=== PATIENT | female | born 1995 | race Caucasian/White ===

== ENCOUNTER 2018-03-15 20:48 | Emergency (ER) | payer MEDICAID, SELFPAY ==
[2018-03-15 20:49] VITALS: BP 137/80; PULSE 94; RESP 18; TEMP 36.3; O2SAT 100; BMI 34.7
--- NOTE | 2018-03-15 21:02 | EKG12_ITS ---
Test Reason : CHEST OTHER Blood Pressure : / mmHG Vent. Rate : 090 BPM Atrial Rate : 090 BPM P-R Int : 142 ms QRS Dur : 078 ms QT Int : 354 ms P-R-T Axes : 037 067 048 degrees QTc Int : 433 ms Normal sinus rhythm with sinus arrhythmia Low voltage QRS Borderline ECG Confirmed by BRENDA SNEED, RICHARD ([id number]), editorial project manager GAL PERALTA ([id number] on 03/17/2018 1:12:26 PM Referred By: KATHERINE Confirmed By:RICHARD GUTIERREZ MD
--- NOTE | 2018-03-15 21:11 | ED.RN ---
NO OLD EKG'S IN MUSE
[2018-03-15 21:18] VITALS: BP 136/99; PULSE 88; RESP 17; O2SAT 99
--- NOTE | 2018-03-15 21:27 | RAD_ITS ---
STUDY: X-RAY CHEST REASON FOR EXAM: Female, 22 years old. Right lower chest or upper abdominal pain. TECHNIQUE: 2 views COMPARISON: None. FINDINGS: The lungs are clear and expanded. There is no demonstrated pleural abnormality. Normal size heart. Normal mediastinum and jada. Normal visualized pulmonary arteries. Normal visualized aortic arch and descending thoracic aorta. Normal visualized thoracic spine. Normal visualized ribs, clavicles, and shoulders. There is no demonstrated abnormality of the visualized soft tissue structures of the upper abdomen. RAD/Chest PA and Lateral IMPRESSION: Normal x-ray examination of the chest. Electronically Signed: Sherly Aguilar MD at 22:18 EDT , Service support ,
[2018-03-15] MEDS: Ketorolac 30 MG/ML Syringe IV (21:28)
[2018-03-15 21:48] LABS: Absolute Lymphocyte Count 3.58 X10^3/ul (0.83-4.51); Absolute Neutrophil Count 5.4 X10^3/uL (2.0-7.7); Basophil# 0.05 X10^3/uL; Basophil% 0.5 % (0-1); Eosinophil# 0.29 X10^3/uL; Eosinophils% 2.8 % (0-5); Hematocrit 40.7 % (37-47); Lymphocyte # 3.58 X10^3/ul (4.0); Mean Corp Hgb Conc 34.4 g/gl (32-36); Mean Corpuscular Hgb 31.7 pg (27.0-32.0); Mean Corpuscular Volume 92.1 fL (81-99); Mean Platelet Vol. 9.6 fl (6.2-12.0); Monocyte# 0.92 X10^3/uL; Neutrophil # 5.35 X10^3/uL (2.7-7.7); Neutrophil % 52.4 % (47-70); Platelet Count 314 K/mm3 (150-450); RBC Distribution Width CV 12.8 % (11.6-14.6); Red Blood Count 4.42 M/mm3 (4.2-5.4); White Blood Count 10.2 K/mm3 (4.4-11.0)
[2018-03-15 21:52] LABS: POSITIVE COUNT NO; POSITIVE DIFFERENTIAL NO; POSITIVE MORPHOLOGY NO
[2018-03-15 22:02] LABS: D-Dimer Quantitative (DVT/PE) 0.35 FEU/ug/m (0.27-0.49)
[2018-03-15 22:09] LABS: AST(SGOT) 33 U/L (15-37); Alanine Aminotransfer ALT/SGPT 35 U/L (13-56); Albumin, Serum 3.8 g/dL (3.2-5.0); Alkaline Phosphatase 84 U/L (45-117); Anion Gap 6 (5-15); BUN 13 mg/dL (7-18); BUN/Creat Ratio 14.1 RATIO (10-20); Bilirubin, Direct < 0.05 mg/dL (0.00-0.30); Calcium,Total 8.7 mg/dL (8.5-10.1); Chloride 107 mmol/L (98-107); Creatinine, Serum 0.92 mg/dL (0.55-1.02); EST Glomerular Filtration Rate 80 mL/min (>60); Est Glom Filt Rate - Afr Amer 97 mL/min (>60); Estimated Creatinine Clearance 79.34 ml/min; Globulin 4.1 g/dL (2.2-4.2); Glucose 83 mg/dL (74-106); Lipase 92 U/L (73-393); Potassium 4.2 mmol/L (3.5-5.1); Protein, Total 7.9 g/dL (6.4-8.2); Sodium Level 140 mmol/L (136-145)
[2018-03-15] MEDS: proMETHazine 25 MG/ML Syringe 12.5 MG IV (22:23)
--- NOTE | 2018-03-15 22:48 | ED.VISSUMM ---
- ER Visit Summary Date of Service: 03/15/18 Chief Complaint: Chest pain History of Present Illness: The patient is a 22 F who presents with right lower chest pain. She states she was at a bonfire last night began to have pain in her right lower lateral chest. She did have some nausea and vomiting last night. She did have some alcohol as well. She states that she felt short of breath last night although this has improved. She describes her pain is sharp. It is worse with inspiration. She denies any abdominal pain. No fevers. No diarrhea. No history of prior similar symptoms. She denies any recent travel or surgery. No history of DVT or pulmonary embolism. No known coagulopathy. She is a smoker. Physical Examination: Afebrile vitals are within normal limits Moist mucous membranes Heart regular rate and rhythm Patient has right lower lateral and posterior chest tenderness to palpation. I do not appreciate any rash. No ecchymosis. Patient does have some right upper quadrant abdominal tenderness but no guarding no rebound no Estevez's sign Test Results: EKG shows sinus rhythm at a rate of 90. CBC BMP hepatic function lipase and d-dimer are all normal. Chest x-ray is normal. Emergency Department Course and Treatment: Patient was treated with Toradol and Phenergan IV here. On reevaluation she is resting comfortably. She does not have any signs of acute life-threatening or surgical process. No evidence of pneumonia, pneumothorax, pulmonary embolism, cholecystitis. She was advised on supportive care. Given that she does have reproducible tenderness over the chest wall I suspect this is due to a musculoskeletal etiology. She was given a prescription for naproxen. She understands return for new or worsening on specific signs and symptoms to monitor for. Patient discharged home in good condition. Treatment Plan: [] Disposition: Discharge Impression: Chest wall pain This note was generated with [employer] dictation software. It may contain incorrect words, spelling, and punctuation that were not noted in review of the chart prior to signing ED Disposition - Plan for ED Patient: Chief Complaint: Chest Other Referrals: Care Physician,No Primary [Primary Care Provider] -
--- NOTE | 2018-03-15 22:51 | ED.DEP ---
ED Disposition - Plan for ED Patient: Chief Complaint: Chest Other Instructions: ED Strain Chest Wall Prescriptions: Naproxen [Naprosyn] 500 mg PO BID #20 tab Referrals: Care Physician,No Primary [Primary Care Provider] - Amador Sloan MD [STAFF PHYSICIAN] -
[2018-03-15 23:12] VITALS: PULSE 85; RESP 18; O2SAT 98
== END 2018-03-15 23:13 | disposition home or self-care (01) ==
PROVIDERS: Emergency Provider Emergency Medicine
DX: R07.89 Other chest pain (principal); R11.2 Nausea with vomiting, unspecified; R06.00 Dyspnea, unspecified; F17.200 Nicotine dependence, unspecified, uncomplicated
CPT/HCPCS: 71046; 80048; 80076; 83690; 85025; 85379; 93005; 96374; 96375; 99284; A4216

== ENCOUNTER 2018-04-27 11:28 | Emergency (ER) | payer MEDICAID, SELFPAY ==
[2018-04-27 11:29] VITALS: BP 116/63; PULSE 94; RESP 18; TEMP 36.9; O2SAT 98; BMI 36.0
--- NOTE | 2018-04-27 12:10 | ED.RN ---
walked past room and gown was bundled up on bed. looked and room and pt was not in room. pt had no communication with staff about leaving.
== END 2018-04-27 12:39 | disposition left against medical advice (07) ==
LOC: ED 12:26
PROVIDERS: Emergency Provider Emergency Medicine
DX: Z53.21 Procedure and treatment not carried out due to patient leaving prior to being seen by health care provider (principal)
CPT/HCPCS: 99281

== ENCOUNTER 2018-05-15 10:07 | Emergency (ER) | payer MEDICAID, SELFPAY ==
[2018-05-15 10:08] VITALS: BP 115/78; PULSE 119; RESP 18; TEMP 36.4; O2SAT 97; BMI 34.7
--- NOTE | 2018-05-15 10:35 | US_ITS ---
STUDY: ABDOMINAL ULTRASOUND - RIGHT UPPER QUADRANT REASON FOR VISIT: Female, 22 years old. Right upper quadrant pain. TECHNIQUE: Ultrasound evaluation of the right upper quadrant was performed with real-time and static nieves-scale imaging. TECHNICAL QUALITY: Adequate. COMPARISON: Comparison is made with prior study dated June 25, 2010. FINDINGS: Liver: The liver measures 13.9 cm. There is normal echogenicity of the liver. The bile ducts are within normal limits. There is hepatic color flow. The direction of portal flow is hepatopetal. There is no demonstrated mass lesion. Gallbladder: Normal distended gallbladder. The gallbladder wall measures 3.0 mm. There is a negative sonographic Estevez's sign. There is no pericholecystic fluid. There are no gallstones. Common Bile Duct (C.B.D.): The common bile duct measures 3.0 mm. Pancreas: Normal size of the head, body and tail of the pancreas. There is normal echogenicity of the pancreas. There is no demonstrated pancreatic mass or cyst. Right Kidney: Normal size of the right kidney. The right kidney measures 11.5 cm x 5.5 cm x 3.8 cm. Normal renal cortex. The right cortex measures 1.9 cm. There is no demonstrated renal mass or cyst. There is no right hydronephrosis. US/Gallbladder IMPRESSION: Normal right upper quadrant ultrasound examination. Electronically Signed: Jordan Butts MD at 11:41 EDT Tel [phone], Service support ,
--- NOTE | 2018-05-15 10:36 | ED.VISSUMM ---
- ER Visit Summary Date of Service: 05/15/18 Chief Complaint: Nausea, vomiting, diarrhea and right upper quadrant abdominal discomfort History of Present Illness: The patient is a 22 F past medical history of prior kidney stones. Reportedly she is about 5 weeks currently. She is seeing a media intern through the [facility]. She is Ab1 with that being a prior miscarriage. She has had no prior abdominal surgeries. States the last 3 days she has had nausea, vomiting and diarrhea. Denies any dysuria or hematuria. No fever. She has developed some right upper quadrant abdominal cramping. Physical Examination: Young female no acute distress. Vital signs are stable and afebrile. H EENT exam unremarkable. Neck nontender. Lungs clear to auscultation bilaterally. Heart regular rhythm no murmur. Rate about 100. Abdomen is soft. Nondistended. Normal bowel sounds. Mild tenderness in the right upper quadrant. No Estevez sign. No right lower quadrant tenderness. No McBurney's point tenderness. Abdomen is nondistended. Left side is nontender. Normal bowel sounds. Soft. No hernias or masses. No signs of obstruction. He is moving all 4 extremities. Nontender. No edema. Back nontender. Neurologically she is awake alert with no focal deficits. Test Results: CBC normal with a white count of 9. Normal hemoglobin. Electrolytes unremarkable. Normal creatinine and gap. Liver enzymes and lipase normal. UA shows 10-25 white cells and 1+ bacteria but no nitrates and no urinary symptoms. I will send a urine culture prior to starting any treatment wait for those results. Quantitative hCG is 34,872. Emergency Department Course and Treatment: GI workup with IV fluids and IV Zofran. Treatment Plan: Repeat exam patient is feeling better after IV fluids and IV Zofran. Clinically I think this is a viral gastroenteritis. Her abdomen currently is benign. She is comfortable being discharged to home. There is no signs of this currently being an appendicitis nor an ectopic . Disposition: Discharge Impression: Acute abdominal pain with nausea, vomiting, diarrhea secondary to viral gastroenteritis first trimester This note was generated with [employer] software. It may contain incorrect words, spelling, and punctuation that were not noted in review of the chart prior to signing ED Disposition - Plan for ED Patient: Chief Complaint: Nausea/Vomiting/Diarrhea Referrals: Care Physician,No Primary [Primary Care Provider] -
--- NOTE | 2018-05-15 10:39 | ED.DCSUM_ITS ---
- ER Visit Summary Date of Service: 05/15/18 Chief Complaint: Nausea, vomiting, diarrhea and right upper quadrant abdominal discomfort History of Present Illness: The patient is a 22 F past medical history of prior kidney stones. Reportedly she is about 5 weeks currently. She is seeing a analytics director through the [facility]. She is Ab1 with that being a prior miscarriage. She has had no prior abdominal surgeries. States the last 3 days she has had nausea, vomiting and diarrhea. Denies any dysuria or hematuria. No fever. She has developed some right upper quadrant abdominal cramping. Physical Examination: Young female no acute distress. Vital signs are stable and afebrile. H EENT exam unremarkable. Neck nontender. Lungs clear to auscultation bilaterally. Heart regular rhythm no murmur. Rate about 100. Abdomen is soft. Nondistended. Normal bowel sounds. Mild tenderness in the right upper quadrant. No Estevez sign. No right lower quadrant tenderness. No McBurney's point tenderness. Abdomen is nondistended. Left side is nontender. Normal bowel sounds. Soft. No hernias or masses. No signs of obstruction. He is moving all 4 extremities. Nontender. No edema. Back nontender. Neurologically she is awake alert with no focal deficits. Test Results: CBC normal with a white count of 9. Normal hemoglobin. Electrolytes unremarkable. Normal creatinine and gap. Liver enzymes and lipase normal. UA shows 10-25 white cells and 1+ bacteria but no nitrates and no urinary symptoms. I will send a urine culture prior to starting any treatment wait for those results. Quantitative hCG is 34,872. Emergency Department Course and Treatment: GI workup with IV fluids and IV Zofran. Treatment Plan: Repeat exam patient is feeling better after IV fluids and IV Zofran. Clinically I think this is a viral gastroenteritis. Her abdomen currently is benign. She is comfortable being discharged to home. There is no signs of this currently being an appendicitis nor an ectopic . Disposition: Discharge Impression: Acute abdominal pain with nausea, vomiting, diarrhea secondary to viral gastroenteritis first trimester This note was generated with [employer] software. It may contain incorrect words, spelling, and punctuation that were not noted in review of the chart prior to signing ED Disposition - Plan for ED Patient: Chief Complaint: Nausea/Vomiting/Diarrhea Referrals: Care Physician,No Primary [Primary Care Provider] -
[2018-05-15] MEDS: 0.9% Normal Saline 1,000 ML 1000 ML IV (10:43)
[2018-05-15] MEDS: Ondansetron 4 MG/2 ML Vial IV (10:43)
[2018-05-15 10:47] LABS: Mucous, Urine 0 SEEN /hpf (<or=2+); Red Blood Cells-Urine 0 SEEN /hpf (0-5)
[2018-05-15 10:52] LABS: Absolute Lymphocyte Count 1.55 X10^3/ul (0.83-4.51); Absolute Neutrophil Count 6.8 X10^3/uL (2.0-7.7); Basophil# 0.02 X10^3/uL; Basophil% 0.2 % (0-1); Eosinophil# 0.13 X10^3/uL; Eosinophils% 1.4 % (0-5); Hematocrit 40.6 % (37-47); Lymphocyte # 1.55 X10^3/ul (4.0); Lymphocyte % 16.7 % (19-41); Mean Corp Hgb Conc 34.5 g/gl (32-36); Mean Corpuscular Hgb 31.5 pg (27.0-32.0); Mean Corpuscular Volume 91.4 fL (81-99); Mean Platelet Vol. 8.9 fl (6.2-12.0); Monocyte# 0.79 X10^3/uL; Monocyte% 8.5 % (0-10); Neutrophil # 6.78 X10^3/uL (2.7-7.7); Neutrophil % 73.1 % (47-70); Platelet Count 238 K/mm3 (150-450); RBC Distribution Width CV 12.7 % (11.6-14.6); RBC Distribution Width SD 42.5 fl (35.1-43.9); Red Blood Count 4.44 M/mm3 (4.2-5.4); White Blood Count 9.3 K/mm3 (4.4-11.0)
[2018-05-15 10:55] LABS: POSITIVE COUNT NO; POSITIVE DIFFERENTIAL NO; POSITIVE MORPHOLOGY NO
[2018-05-15 11:05] LABS: AST(SGOT) 20 U/L (15-37); Alanine Aminotransfer ALT/SGPT 25 U/L (13-56); Albumin, Serum 3.4 g/dL (3.2-5.0); Alkaline Phosphatase 76 U/L (45-117); Anion Gap 10 (5-15); BUN 8 mg/dL (7-18); BUN/Creat Ratio 8.5 RATIO (10-20); Bilirubin, Direct 0.08 mg/dL (0.00-0.30); Calcium,Total 8.2 mg/dL (8.5-10.1); Chloride 104 mmol/L (98-107); Creatinine, Serum 0.94 mg/dL (0.55-1.02); EST Glomerular Filtration Rate 79 mL/min (>60); Est Glom Filt Rate - Afr Amer 95 mL/min (>60); Estimated Creatinine Clearance 74.25 ml/min; Globulin 4.4 g/dL (2.2-4.2); Glucose 85 mg/dL (74-106); Lipase 50 U/L (73-393); Potassium 3.4 mmol/L (3.5-5.1); Protein, Total 7.8 g/dL (6.4-8.2); Sodium Level 135 mmol/L (136-145)
[2018-05-15 11:08] LABS: Color, Urine Yellow (Yellow); Glucose, Dipstick Normal (Normal); Ketone-Dipstick 5 mg/dl (Negative); Leukocyte Esterase-Dipstick 100 /ul (Negative); Nitrite-Dipstick Negative (Negative); Occult Blood-Urine Negative /ul (Negative); Protein-Dipstick 15 mg/dl (Negative); Urine Clarity Sl. Cloudy (Clear); Urine Urobilinogen Normal (Normal)
[2018-05-15 11:11] LABS: Urine Bilirubin Dipstick 1 mg/dL (Negative)
[2018-05-15 11:20] LABS: Bacteria 1+ /hpf (None Seen); Squamous Epithelial Cells - UA 0-5 SEEN /hpf (5-10); White Blood Cells 10-25 SEEN /hpf (0-5)
[2018-05-15 11:24] LABS: hCG Titer Quant., Serum 34872 mIU/mL (<9 non-preg)
--- NOTE | 2018-05-15 13:07 | ED.DEP ---
ED Disposition - Plan for ED Patient: Disposition: Home or Assisted Living Chief Complaint: Nausea/Vomiting/Diarrhea Instructions: ED Gastroenteritis Viral Prescriptions: Ondansetron [Zofran Odt] 4 mg PO Q4H PRN PRN #10 tab.rapdis PRN Reason: Nausea Referrals: Care Physician,No Primary [Primary Care Provider] - 1-2 Days if not improving Additional Instructions: Plenty of fluids and rest. Zofran as needed for nausea. Return if feeling worse or follow-up the primary care provider or your ASSISTANT PROFESSOR OF EDUCATION if not improving.
--- NOTE | 2018-05-15 13:10 | DCINST.ED_ITS ---
ED Disposition - Plan for ED Patient: Disposition: Home or Assisted Living Chief Complaint: Nausea/Vomiting/Diarrhea Instructions: ED Gastroenteritis Viral Prescriptions: Ondansetron [Zofran Odt] 4 mg PO Q4H PRN PRN #10 tab.rapdis PRN Reason: Nausea Referrals: Care Physician,No Primary [Primary Care Provider] - 1-2 Days if not improving Additional Instructions: Plenty of fluids and rest. Zofran as needed for nausea. Return if feeling worse or follow-up the primary care provider or your VISUAL EFFECTS ARTIST if not improving.
== END 2018-05-15 13:19 | disposition home or self-care (01) ==
PROVIDERS: Emergency Provider Emergency Medicine
DX: O98.511 Other viral diseases complicating pregnancy, first trimester (principal); A08.4 Viral intestinal infection, unspecified; R10.11 Right upper quadrant pain; R11.2 Nausea with vomiting, unspecified; R19.7 Diarrhea, unspecified; O99.331 Smoking (tobacco) complicating pregnancy, first trimester; F17.200 Nicotine dependence, unspecified, uncomplicated; Z3A.01 Less than 8 weeks gestation of pregnancy; Z87.442 Personal history of urinary calculi
CPT/HCPCS: 76705; 80048; 80076; 81001; 83690; 84702; 85025; 96361; 96374; 99283; J7030; J2405

== ENCOUNTER 2018-05-26 10:27 | Day surgery (SDC) | payer MEDICAID, SELFPAY ==
[2018-05-26] VITALS (8 sets, daily range): BP systolic 105–118; BP diastolic 62–74; PULSE 58–75; RESP 14–18; TEMP 36.4–36.9; O2SAT 91–98; BMI 35.4
--- NOTE | 2018-05-26 | POC_PTH ---
PATIENT: VIKKI WEBBER LOC: [facility] U#:[id number] AGE/SX: 22/F ROOM: RE05/26/[address]: Dr. Martita Rodriguez, MDDOB: 1995 BED: DIS: 05/26/2018 SPEC #: [id number] RECD: 05/26/18 13:56 STATUS: MASSIMO REDuncan #: [id number] DERRICK: 05/26/18 00:[address]: Martita Rodriguez DEPT: SURGICAL PATHOLOGY RECD BY: Kofi Handy ENTERED: 05/26/18 13:56 SP TYPE: PROD CONC OTHR DR: No Primary Care Phys Tissues: Product of conception, NOS Procedures: Surgery Specimen Level IV HEADER OPERATION: Dilation and curettage, suction PRE-OP DIAGNOSIS: Retained products of conception after miscarriage TISSUE SUBMITTED: Products of conception MICROSCOPIC DIAGNOSIS Products of conception: Decidua, blood clots, immature chorionic villi and secretory endometrium (products of conception). BRAYAN:desmond 05/27/18 COMMENT Please make reference to previous specimen ([id number]) products of conception with diagnosis of decidua and immature chorionic villi (products of conception). MICROSCOPIC DESCRIPTION Slides are reviewed. GROSS DESCRIPTION Received in fixative is one container labeled with the patient's name and designated products of conception. The specimen consists of multiple irregular fragments of pink-red soft tissue that in aggregate measure 5 x 5 x 2 cm. tissue is not identified. Launch Manager tissue is submitted in three cassettes. / BRAYAN:desmond 05/26/18 TC:5 CPT: 91187
[2018-05-26] MEDS: Doxycycline 100 MG CAPSULE 200 MG PO (10:49)
--- NOTE | 2018-05-26 12:39 | DCINST_ITS ---
Discharge Diet: No Restrictions Discharge Activity: Return to Normal Activity, May Shower, May Take a Tub Bath - in 2 weeks. May resume sexual activity in: 1 week Call your doctor if you observe: Fever of 101 or Higher, Using more than one pad per hour, Uncontrolled pain Allergies/Adverse Reactions: Allergies No Known Allergies Allergy (Verified 05/25/18 15:48) Medications to take at Discharge Hydrocodone/Acetaminophen [Hydrocodon-Acetaminophen 5-325] 1 each PO DAILY PRN 05/25/18 Sertraline HCl [Zoloft] 50 mg PO DAILY 05/25/18 Primary Care Physician: Care Physician,No Primary [Primary Care Provider] - Test Results: Test results from this visit will be discussed in further detail at your follow- up appointment, if applicable. Please Follow Up With: Martita Rodriguez MD When: 2 weeks post op
--- NOTE | 2018-05-26 12:40 | PCM.OPRPT ---
Problem List (1) Retained products of conception after miscarriage Status: Acute Report of Operation Date of Procedure: 05/26/18 Pre-Operative Diagnosis: retained products of conception after missed ab Post-Operative Diagnosis: same Surgery/Procedure Performed:: Suction Dilation and Curettage Description of Surgical Findings:: retained POC seen at cervical OS- moderate amount of tissue suctioned with 7mm suction catheter Type of Anesthesia:: MAC Specimen's removed: products of conception Drains: none Estimated Blood Loss (mL): 10 Fluids Replaced: 700 Description of Procedure: After informed consent was obtained patient was taken to OR and placed in supine position. Anesthesia was given. patient was placed in yellow fin stirrups and prepped and draped in normal sterile fashion. bladder was drained with straight catheter with approximately 200 of clear yellow urine expelled. Weighted speculum placed in posterior fornix of vaginal, single tooth tenaculum was used to gently grasped anterior lip of cervix. retained POC seen at cervical OS. Cervix was then gently dilated in an incremental fashion. Was adequate dilation was achieved the 7mm syrian suction catheter was placed. suction curettage performed until no tissue was expelled and cavity was deemed empty. The tissue was then sent to pathology for examination. No complications. At this time procedure was deemed complete and successful. Tenaculum removed, speculum removed. Good hemostasis appreciated. Vaginal sweep was negative. Instrument and lap count correct x 2. I anticipate normal postoperative course. - Complications none - Admit VTE Documentation VTE Present on Admission: Yes VTE Mechan Device Prophylaxis: SCD's VTE Pharm Prophylaxis ordered?: No
== END 2018-05-26 14:13 | disposition home or self-care (01) ==
LOC: SDC 10:29 → AC 10:31
PROVIDERS: Referring Provider Obstetrics & Gynecology; Visit Provider Obstetrics & Gynecology
PROC: (CPT 59812; principal; 2018-05-26 07:15)
DX: O03.4 Incomplete spontaneous abortion without complication (principal); F32.9 Major depressive disorder, single episode, unspecified; Z79.899 Other long term (current) drug therapy; K21.9 Gastro-esophageal reflux disease without esophagitis; F17.210 Nicotine dependence, cigarettes, uncomplicated
CPT/HCPCS: 01965; 59812; 88305; J7120; J2405

== ENCOUNTER 2019-04-06 02:03 | Observation (INO) | payer MEDICAID, SELFPAY ==
[2019-04-06] VITALS (17 sets, daily range): BP systolic 85–133; BP diastolic 7–93; PULSE 55–108; RESP 12–20; TEMP 35.7–36.7; O2SAT 79–100; BMI 36.4; BMI 35.5; BMI 35.6
--- NOTE | 2019-04-06 02:14 | EKG12_ITS ---
Test Reason : Blood Pressure : / mmHG Vent. Rate : 084 BPM Atrial Rate : 084 BPM P-R Int : 144 ms QRS Dur : 076 ms QT Int : 340 ms P-R-T Axes : 063 070 045 degrees QTc Int : 401 ms Normal sinus rhythm with sinus arrhythmia Low voltage QRS Borderline ECG Confirmed by BRENDA SNEED, RICHARD ([id number]), proposal editor DIPTI PETIT ([id number]) on 04/07/2019 8:58:16 AM Referred By: KAY Confirmed By:RICHARD GUTIERREZ MD
[2019-04-06 02:27] LABS: Absolute Lymphocyte Count 3.85 X10^3/uL (0.83-4.51); Absolute Neutrophil Count 7.7 X10^3/uL (2.0-7.7); Basophil# 0.06 X10^3/uL; Basophil% 0.5 % (0-1); Eosinophil# 0.15 X10^3/uL; Eosinophils% 1.2 % (0-5); Hematocrit 44.1 % (37-47); Hemoglobin 15.2 g/dL (12.0-15.0); Lymphocyte # 3.85 X10^3/ul (4.0); Lymphocyte % 30.8 % (19-41); Mean Corp Hgb Conc 34.5 g/dL (32-36); Mean Corpuscular Hgb 31.6 pg (27.0-32.0); Mean Corpuscular Volume 91.7 fL (81-99); Monocyte# 0.63 X10^3/uL; NRBC Flagged by Analyzer 0 % (0-5); Neutrophil # 7.73 X10^3/uL (2.7-7.7); Platelet Count 322 K/mm3 (150-450); RBC Distribution Width CV 12.5 % (11.6-14.6); RBC Distribution Width SD 41.8 fl (35.1-43.9); Red Blood Count 4.81 M/mm3 (4.2-5.4); White Blood Count 12.5 K/mm3 (4.4-11.0)
[2019-04-06 02:36] LABS: Vista UDS pH Range 6
[2019-04-06 02:38] LABS: Internal QC Validated? YES +Cl - CLEAR BKGD; Pregnancy, Serum, hCG Quali. NEGATIVE Negative
[2019-04-06 02:41] LABS: Anion Gap 5 (5-15); BUN 14 mg/dL (7-18); BUN/Creat Ratio 14.2 RATIO (10-20); Calcium,Total 8.6 mg/dL (8.5-10.1); Chloride 107 mmol/L (98-107); Creatinine, Serum 0.99 mg/dL (0.55-1.02); EST Glomerular Filtration Rate 74 mL/min (>60); Est Glom Filt Rate - Afr Amer 89 mL/min (>60); Glucose 104 mg/dL (74-106); Potassium 3.5 mmol/L (3.5-5.1); Sodium Level 138 mmol/L (136-145)
[2019-04-06] MEDS: Activated Charcoal 50 GM/240 ML BOT PO (02:51)
[2019-04-06 02:54] LABS: Amphetamine Urine VISTA NEGATIVE (<1000 ng/mL); Barbiturate Urine VISTA NEGATIVE (< 200 ng/mL); Benzodiazepine Urine VISTA NEGATIVE (< 200 ng/mL); Cocaine Urine VISTA NEGATIVE (< 300 ng/mL); Ecstacy Urine VISTA NEGATIVE (< 500 ng/mL); Methadone Urine VISTA NEGATIVE (< 300 ng/mL); PCP Urine VISTA NEGATIVE (< 25 ng/mL); THC Urine VISTA POSITIVE (< 50 ng/mL)
[2019-04-06 02:54] LABS: Alcohol, Blood (Medical)-Serum < 3.0 mg/dL; Salicylate 12.2 mg/dL (2.8-20.0)
[2019-04-06 03:07] LABS: Acetaminophen (Tylenol) Level < 2.0 ug/mL (10.0-30.0)
--- NOTE | 2019-04-06 03:25 | ED.DCSUM_ITS ---
- ER Visit Summary Date of Service: 04/06/19 Chief Complaint: [Depression and suicidal ideation and intentional drug overdose] History of Present Illness: The patient is a 23 F [presents to the emergency department after ingesting a handful of full-strength aspirin. Patient states the ingestion occurred about an hour ago. Patient complains of some burning in her stomach. She denies vomiting. Patient states that she was feeling depressed because she is been going through a lot of stress lately. Patient supposed to be on antidepressant and she is not been taking it. Patient also has history of bipolar disorder. She denies any auditory or visual hallucinations. She denies any other ingestions today. Patient is a smoker. Patient admits occasional marijuana use. She denies alcohol tonight. Physical Examination: [HEENT-PERRLA, EOMI. Cranial nerves II through XII gross ly intact. TMs clear. Mucous membranes moist. No adenopathy. Cardiovascular-regular rate and rhythm without murmur or ectopy Lungs-clear to auscultation, chest wall stable without crepitus or subcu emphysema Abdomen-normoactive bowel sounds, soft, nontender, no rebound or rigidity, no peritoneal signs. Extremities-intact ?4, normal range of motion, normal pulses, atraumatic] Test Results: [EKG obtained arrival shows sinus rhythm with a ventricular rate of 84 bpm. CBC with differential showed a white count 12.5, hemoglobin 15, hematocrit 44, placed 322. Chemistries unremarkable. hCG was negative. Salicylates were 12.2. Tylenol was less than 2. Tox screen was positive for marijuana. Alcohol was negative.] Emergency Department Course and Treatment: [Case was discussed with poison control and they recommended charcoal. Patient was given 50 g p.o. Patient was given Zofran 4 mg IV. Case was discussed with hospitalist will evaluate patient for admission. If patient's level peaks above 30 she may require alkalinization of the blood in urine with sodium bicarb.] Treatment Plan: [Admit to ICU] Disposition: [Admit] Impression: [Suicidal ideation Depression Salicylate overdose] This note was generated with [employer] software. It may contain incorrect words, spelling, and punctuation that were not noted in review of the chart prior to signing ED Disposition - Plan for ED Patient: Referrals: Care Physician,No Primary [Primary Care Provider] -
[2019-04-06] MEDS: Ondansetron 4 MG/2 ML Vial IV (03:39)
--- NOTE | 2019-04-06 03:50 | HP.PCM_ITS ---
Problem List (1) Suicide attempt Status: Acute History of Present Illness Date of Admission: 04/06/19 Chief Complaint: intentional aspirin overdose The patient is a 23 year old female with a significant past medical history of bipolar disorder presents to the emergency room 1 hour after taking a handful of full-strength aspirin from a bottle that she states was full, however the quantity remains unknown and is described as a handful. The patient states her stress level has been very high lately and she is in a very depressed state, she was able to reach out to her sibling who recognized that she was upset and found out that she had taken these pills. She then assisted her in getting medical care. The patient is seen at [facility] for diagnosis of bipolar disorder for which she is prescribed Lamictal most recently, however she states she has not been taking that. Patient states previously she has been on several SSRIs that have been unsuccessful in helping her. The patient is currently not in school nor she employed. Initial aspirin level is 12 and the patient test positive for cannabinoids on her drug screen. Currently the patient denies chest pain shortness of breath fevers or chills nausea vomiting or diarrhea. The patient remains tearful. She will be admitted to the intensive care unit following protocol to find peak level of aspirin followed by decline in serum levels at which point she would be medically cleared for crisis team intervention to assist her more with her counseling and psychological support. Past Medical History Allergies No Known Allergies Allergy (Verified 05/25/18 15:48) Home Medications: Ambulatory Orders Medication Instructions Recorded Lamotrigine [Lamictal] 25 mg PO DAILY 04/06/19 Smoking Status: Current every day smoker - *Family History Maternal History Items: No pertinent history Review of Systems Constitutional: Denies: Chills, Fever, Weight Change HEENT: Denies: Head Aches, Sinus Congestion, Sinus Drainage Cardiovascular: Denies: Chest Pain, Palpitations Respiratory: Denies: Cough, Shortness of breath at rest, Sputum production Gastrointestinal: Denies: Abdominal Pain, Nausea, Vomiting Genitourinary: Denies: Dysuria Musculoskeletal: Denies: Joint Pain, Joint Tenderness Skin: Denies: Rash, Wounds Neurological: Denies: Numbness, Tingling, Focal weakness Psychiatric: Reports: Depression, Suicidal Ideations. Denies: Anxiety, Homicidal Ideations Hematologic/ Lymphatic: Denies: Easy Bruising, Easy Bleeding VTE Information - Inpt Only VTE Present on Admission: No VTE Mechan Device Prophylaxis: SCD's VTE Pharm Prophylaxis ordered?: No Patient Problems: Active and Suspected Problems Suicide attempt (Acute) - Physical Exam General: Alert, Oriented x3, Cooperative HEENT: Atraumatic, Normocephalic Neck: Supple Lungs: Clear to auscultation, Normal air movement Cardiovascular: Regular rate, Normal S1, Normal S2, No murmurs Abdomen: Bowel Sounds Present, Soft, Non Tender, Obese Extremities: No edema Skin: No rashes Musculoskeletal: No Tenderness to Palpation of Joints or Extremities Neurological: Neuro grossly intact Psych/Mental Status: Depressed, Suicidal Vital Signs Temp Pulse Resp BP Pulse Ox 98.0 F 85 17 122/78 H 98 04/06/19 03:40 04/06/19 03:40 04/06/19 03:40 04/06/19 03:40 04/06/19 03:40 Oxygen Delivery Method Room Air Weight: 199 lb 4.766 oz Body Mass Index (BMI) 36.4 Laboratory Tests Past 24 Hrs 04/06/19 04/06/19 04/06/19 02:22 02:22 02:22 WBC 12.5 H RBC 4.81 Hgb 15.2 H Hct 44.1 MCV 91.7 MCH 31.6 MCHC 34.5 RDW Std Deviation 41.8 RDW Coeff of Jules 12.5 Plt Count 322 MPV 9.0 Immature Gran % (Auto) 0.500 Neut % (Auto) 62.0 Lymph % (Auto) 30.8 [place] % (Auto) 5.0 Eos % (Auto) 1.2 Baso % (Auto) 0.5 Absolute Neuts (auto) 7.7 Absolute Lymphs (auto) 3.85 Nucleated RBC % 0 Sodium 138 Potassium 3.5 Chloride 107 Carbon Dioxide 26.0 Anion Gap 5 BUN 14 Creatinine 0.99 Estim Creat Clear Calc 69.90 Est GFR (MDRD) Af Amer 89 Est GFR (MDRD) Non-Af 74 BUN/Creatinine Ratio 14.2 Glucose 104 Calcium 8.6 Serum , Qual Salicylates 12.2 Urine Opiates Screen Urine Methadone Screen Acetaminophen < 2.0 L Ur Barbiturates Screen Ur Phencyclidine Scrn Ur Amphetamines Screen U Methamphetamin-MDMA U Benzodiazepines Scrn Urine Cocaine Screen U Cannabinoids Screen Ur Drug Screen Comment Ethyl Alcohol < 3.0 04/06/19 04/06/19 02:22 02:30 WBC RBC Hgb Hct MCV MCH MCHC RDW Std Deviation RDW Coeff of Jules Plt Count MPV Immature Gran % (Auto) Neut % (Auto) Lymph % (Auto) [place] % (Auto) Eos % (Auto) Baso % (Auto) Absolute Neuts (auto) Absolute Lymphs (auto) Nucleated RBC % Sodium Potassium Chloride Carbon Dioxide Anion Gap BUN Creatinine Estim Creat Clear Calc Est GFR (MDRD) Af Amer Est GFR (MDRD) Non-Af BUN/Creatinine Ratio Glucose Calcium Serum , Qual NEGATIVE Salicylates Urine Opiates Screen NEGATIVE Urine Methadone Screen NEGATIVE Acetaminophen Ur Barbiturates Screen NEGATIVE Ur Phencyclidine Scrn NEGATIVE Ur Amphetamines Screen NEGATIVE U Methamphetamin-MDMA NEGATIVE U Benzodiazepines Scrn NEGATIVE Urine Cocaine Screen NEGATIVE U Cannabinoids Screen POSITIVE H Ur Drug Screen Comment Ethyl Alcohol Assessment/Plan All Active Problems Retained products of conception after miscarriage (Acute) Suicide attempt (Acute) Plan 1. Suicide attempt by aspirin overdose?at the patient to the intensive care unit, will check aspirin serum levels every 2 hours until noted decline. Repeat CBC BMP in the morning, consult crisis team for intervention to help with counseling 2. Bipolar disorder?patient is noncompliant with her Lamictal therapy 3. DVT prophylaxis?will not use low molecular weight heparin due to patient overdosing on aspirin currently and will assume she is low risk as a result. 4. Smoking?defer discussion due to psychologic state at this time regarding cessation Code Visit Inpatient E&M: 26386 Init Hosp L3
[2019-04-06] MEDS: 0.9% NaCl Peripheral Flush Adult/Peds IV (04:40)
[2019-04-06 04:54] LABS: Absolute Lymphocyte Count 3.18 X10^3/uL (0.83-4.51); Absolute Neutrophil Count 7.9 X10^3/uL (2.0-7.7); Basophil# 0.06 X10^3/uL; Basophil% 0.5 % (0-1); Eosinophil# 0.14 X10^3/uL; Eosinophils% 1.2 % (0-5); Hematocrit 40.2 % (37-47); Hemoglobin 13.8 g/dL (12.0-15.0); Lymphocyte # 3.18 X10^3/ul (4.0); Lymphocyte % 26.3 % (19-41); Mean Corp Hgb Conc 34.3 g/dL (32-36); Mean Corpuscular Hgb 31.2 pg (27.0-32.0); Mean Platelet Vol. 9.4 fl (6.2-12.0); Monocyte# 0.82 X10^3/uL; Monocyte% 6.8 % (0-10); NRBC Flagged by Analyzer 0 % (0-5); Neutrophil # 7.86 X10^3/uL (2.7-7.7); Neutrophil % 64.9 % (47-70); Platelet Count 293 K/mm3 (150-450); RBC Distribution Width CV 12.6 % (11.6-14.6); Red Blood Count 4.42 M/mm3 (4.2-5.4); White Blood Count 12.1 K/mm3 (4.4-11.0)
[2019-04-06 05:02] LABS: Anion Gap 10 (5-15); BUN 12 mg/dL (7-18); BUN/Creat Ratio 12.5 RATIO (10-20); Calcium,Total 8.5 mg/dL (8.5-10.1); Chloride 109 mmol/L (98-107); Creatinine, Serum 0.96 mg/dL (0.55-1.02); EST Glomerular Filtration Rate 76 mL/min (>60); Est Glom Filt Rate - Afr Amer 92 mL/min (>60); Estimated Creatinine Clearance 72.08 ml/min; Glucose 108 mg/dL (74-106); Potassium 3.4 mmol/L (3.5-5.1); Sodium Level 142 mmol/L (136-145)
[2019-04-06 05:23] LABS: Salicylate 16.2 mg/dL (2.8-20.0)
[2019-04-06 07:29] LABS: Salicylate 16.2 mg/dL (2.8-20.0)
--- NOTE | 2019-04-06 08:18 | CON.PCM_ITS ---
Reason for Consult Date of Consultation: 04/06/19 Reason for Consultation: Intentional ASA Overdose History of Present Illness: The patient is a 23-year-old female, with a history as outlined below, who presented to the emergency department on April 06 after intentionally ingesting a handful of aspirin of unknown strength. The patient does have an apparent history of significant depression and bipolar. She is a current smoker of 1 pack of cigarettes per day. On presentation to the emergency department, the patient was noted to be afebrile and hemodynamically stable. She was maintaining appropriate oxygen saturations on room air. Laboratory evaluation revealed a mildly elevated white blood cell count to 12,000. Chemistry profile was unrevealing. Toxicology screen was positive for cannabinoids. The patient's initial salicylate level was noted to be 12.2 mg/dL. The patient was pink slipped. She was subsequently transferred to the medical intensive care unit for further management. Past Medical History Allergies No Known Allergies Allergy (Verified 05/25/18 15:48) Home Medications: Ambulatory Orders Medication Instructions Recorded Lamotrigine [Lamictal] 25 mg PO DAILY 04/06/19 Smoking Status: Current every day smoker Tobacco Use: Secondhand, Cigarettes - *Family History Maternal History Items: No pertinent history Review of Systems Constitutional: Denies: Chills, Fever Eyes: Denies: Blurred vision, Double vision HEENT: Denies: Difficulty Hearing, Difficulty Swallowing, Hard of Hearing Cardiovascular: Denies: Chest Pain, Edema Respiratory: Denies: Cough, Shortness of Breath Gastrointestinal: Denies: Abdominal Pain, Nausea, Vomiting Genitourinary: Denies: Dysuria Musculoskeletal: Denies: Joint Pain, Joint Tenderness Skin: Denies: Rash, Wounds Neurological: Denies: Numbness, Tingling, Focal weakness Psychiatric: Reports: Depression, Suicidal Ideations Hematologic/ Lymphatic: Denies: Easy Bruising, Easy Bleeding Patient Problems: Active and Suspected Problems Suicide attempt (Acute) Objective: The patient's most recent lab work, culture data and imaging studies have all been personally reviewed. - Physical Exam General: Alert, Cooperative, No apparent distress HEENT: Atraumatic, PERRLA, Normocephalic Oral: No Gingival or Mucosal Lesions/ Ulcerations Neck: Supple, No Nodes, Trachea Midline Lungs: Normal air movement, No rhonchi, No wheeze, No rales Cardiovascular: Regular rate, Regular Rhythm, Normal S1, Normal S2, No murmurs Abdomen: Bowel Sounds Present, Soft, Non Tender, Obese Extremities: No clubbing, No cyanosis, No edema Skin: No breakdown Musculoskeletal: No Tenderness to Palpation of Joints or Extremities, No Muscle Wasting Lymphatic: No Cervical, Supraclavicular, or Inguinal Adenopathy Neurological: Cranial nerves II-XII grossly intact, Neuro grossly intact Psych/Mental Status: Flat Affect, Depressed Vital Signs Temp Pulse Resp BP Pulse Ox 96.2 F L 64 14 102/55 L 96 04/06/19 05:00 04/06/19 06:00 04/06/19 06:00 04/06/19 06:00 04/06/19 06:00 Oxygen Delivery Method Room Air Weight: 194 lb 7.163 oz Body Mass Index (BMI) 35.5 Laboratory Tests Past 24 Hrs 04/06/19 04/06/19 04/06/19 02:22 02:22 02:22 WBC 12.5 H RBC 4.81 Hgb 15.2 H Hct 44.1 MCV 91.7 MCH 31.6 MCHC 34.5 RDW Std Deviation 41.8 RDW Coeff of Jules 12.5 Plt Count 322 MPV 9.0 Immature Gran % (Auto) 0.500 Neut % (Auto) 62.0 Lymph % (Auto) 30.8 [place] % (Auto) 5.0 Eos % (Auto) 1.2 Baso % (Auto) 0.5 Absolute Neuts (auto) 7.7 Absolute Lymphs (auto) 3.85 Nucleated RBC % 0 Sodium 138 Potassium 3.5 Chloride 107 Carbon Dioxide 26.0 Anion Gap 5 BUN 14 Creatinine 0.99 Estim Creat Clear Calc 69.90 Est GFR (MDRD) Af Amer 89 Est GFR (MDRD) Non-Af 74 BUN/Creatinine Ratio 14.2 Glucose 104 Calcium 8.6 Serum , Qual Salicylates 12.2 Urine Opiates Screen Urine Methadone Screen Acetaminophen < 2.0 L Ur Barbiturates Screen Ur Phencyclidine Scrn Ur Amphetamines Screen U Methamphetamin-MDMA U Benzodiazepines Scrn Urine Cocaine Screen U Cannabinoids Screen Ur Drug Screen Comment Ethyl Alcohol < 3.0 Miscellaneous Test 04/06/19 04/06/19 04/06/19 02:22 02:30 04:35 WBC RBC Hgb Hct MCV MCH MCHC RDW Std Deviation RDW Coeff of Jules Plt Count MPV Immature Gran % (Auto) Neut % (Auto) Lymph % (Auto) [place] % (Auto) Eos % (Auto) Baso % (Auto) Absolute Neuts (auto) Absolute Lymphs (auto) Nucleated RBC % Sodium Potassium Chloride Carbon Dioxide Anion Gap BUN Creatinine Estim Creat Clear Calc Est GFR (MDRD) Af Amer Est GFR (MDRD) Non-Af BUN/Creatinine Ratio Glucose Calcium Serum , Qual NEGATIVE Salicylates Urine Opiates Screen NEGATIVE Urine Methadone Screen NEGATIVE Acetaminophen Ur Barbiturates Screen NEGATIVE Ur Phencyclidine Scrn NEGATIVE Ur Amphetamines Screen NEGATIVE U Methamphetamin-MDMA NEGATIVE U Benzodiazepines Scrn NEGATIVE Urine Cocaine Screen NEGATIVE U Cannabinoids Screen POSITIVE H Ur Drug Screen Comment Ethyl Alcohol Miscellaneous Test Cancelled 04/06/19 04/06/19 04/06/19 04:35 04:35 04:35 WBC 12.1 H RBC 4.42 Hgb 13.8 Hct 40.2 MCV 91.0 MCH 31.2 MCHC 34.3 RDW Std Deviation 42.0 RDW Coeff of Jules 12.6 Plt Count 293 MPV 9.4 Immature Gran % (Auto) 0.300 Neut % (Auto) 64.9 Lymph % (Auto) 26.3 [place] % (Auto) 6.8 Eos % (Auto) 1.2 Baso % (Auto) 0.5 Absolute Neuts (auto) 7.9 H Absolute Lymphs (auto) 3.18 Nucleated RBC % 0 Sodium 142 Potassium 3.4 L Chloride 109 H Carbon Dioxide 23.0 Anion Gap 10 BUN 12 Creatinine 0.96 Estim Creat Clear Calc 72.08 Est GFR (MDRD) Af Amer 92 Est GFR (MDRD) Non-Af 76 BUN/Creatinine Ratio 12.5 Glucose 108 H Calcium 8.5 Serum , Qual Salicylates 16.2 Urine Opiates Screen Urine Methadone Screen Acetaminophen Ur Barbiturates Screen Ur Phencyclidine Scrn Ur Amphetamines Screen U Methamphetamin-MDMA U Benzodiazepines Scrn Urine Cocaine Screen U Cannabinoids Screen Ur Drug Screen Comment Ethyl Alcohol Miscellaneous Test 04/06/19 06:55 WBC RBC Hgb Hct MCV MCH MCHC RDW Std Deviation RDW Coeff of Jules Plt Count MPV Immature Gran % (Auto) Neut % (Auto) Lymph % (Auto) [place] % (Auto) Eos % (Auto) Baso % (Auto) Absolute Neuts (auto) Absolute Lymphs (auto) Nucleated RBC % Sodium Potassium Chloride Carbon Dioxide Anion Gap BUN Creatinine Estim Creat Clear Calc Est GFR (MDRD) Af Amer Est GFR (MDRD) Non-Af BUN/Creatinine Ratio Glucose Calcium Serum , Qual Salicylates 16.2 Urine Opiates Screen Urine Methadone Screen Acetaminophen Ur Barbiturates Screen Ur Phencyclidine Scrn Ur Amphetamines Screen U Methamphetamin-MDMA U Benzodiazepines Scrn Urine Cocaine Screen U Cannabinoids Screen Ur Drug Screen Comment Ethyl Alcohol Miscellaneous Test Assessment/Plan Active and Suspected Problems Suicide attempt (Acute) RECOMMENDATIONS: 1. Continue to monitor salicylate level every 2 hours until it begins to downtrend. 2. Alkalinization therapy is not indicated at this time. 3. The patient will require crisis evaluation once medically stabilized. 4. Start nicotine replacement therapy. IMPRESSIONS: 1. Intentional aspirin overdose/suicide attempt The patient remains clinically stable. Her salicylate levels have never reached a toxic level. The patient is asymptomatic at this time. There is no indication for alkalinization therapy. Continue to monitor serum salicylate levels every 2 hours until they begin to downtrend. At that time, the patient can be evaluated by the crisis team. 2. History of depression/bipolar disorder/tobacco dependency Complicates care, management, recovery and prognosis. Crisis evaluation is pending. Nicotine replacement therapy can be offered to the patient while admitted to the hospital. This note was generated with [employer] dictation software. It may contain incorrect words, spelling, and punctuation that were not noted in checking the note before signing. Code Visit Inpatient E&M: 69968 Init Hosp L3
--- NOTE | 2019-04-06 08:55 | PN_ITS ---
Patient Problems: Active and Suspected Problems Suicide attempt (Acute) Subjective: Feels tired. Denies any headache, nausea, vomiting, tinnitus. States that she took all the aspirin to end it. Vitals/I&O's: Vital Signs Temp Pulse Resp BP Pulse Ox 35.7 C L 58 L 14 102/55 L 96 04/06/19 05:00 04/06/19 08:30 04/06/19 06:00 04/06/19 06:00 04/06/19 06:00 Oxygen Delivery Method Room Air Weight: 88.2 kg Body Mass Index (BMI) 35.5 General: Alert, No apparent distress HEENT: Atraumatic, Normocephalic Oral: Moist Mucosa, No Gingival or Mucosal Lesions/ Ulcerations Neck: No Nodes, Thyroid Normal Size and Texture Lungs: Clear to auscultation, Normal air movement, No rhonchi, No wheeze, No rales, Diminished Cardiovascular: Regular rate, Regular Rhythm, Normal S1, Normal S2, No murmurs Abdomen: Bowel Sounds Present, Soft, Non Tender, Non-Distended, No Hepato- splenomegaly Extremities: No edema, No Calf Tenderness Skin: No rashes, No breakdown Musculoskeletal: No Tenderness to Palpation of Joints or Extremities, No Muscle Wasting, Arthritic Changes, Cachexia Lymphatic: No Cervical, Supraclavicular, or Inguinal Adenopathy, Cervical Adenopathy Psych/Mental Status: Appropriate, Flat Affect Laboratory Results 04/06/19 02:22: WBC 12.5 H, RBC 4.81, Hgb 15.2 H, Hct 44.1, MCV 91.7, MCH 31.6, MCHC 34.5, RDW Std Deviation 41.8, RDW Coeff of Jules 12.5, Plt Count 322, MPV 9.0, Immature Gran % (Auto) 0.500, Neut % (Auto) 62.0, Lymph % (Auto) 30.8, [place] % (Auto) 5.0, Eos % (Auto) 1.2, Baso % (Auto) 0.5, Absolute Neuts (auto) 7.7, Absolute Lymphs (auto) 3.85, Nucleated RBC % 0 04/06/19 02:22: Sodium 138, Potassium 3.5, Chloride 107, Carbon Dioxide 26.0, Anion Gap 5, BUN 14, Creatinine 0.99, Estim Creat Clear Calc 69.90, Est GFR (MDRD) Af Amer 89, Est GFR (MDRD) Non-Af 74, BUN/Creatinine Ratio 14.2, Glucose 104, Calcium 8.6 04/06/19 02:22: Salicylates 12.2, Acetaminophen < 2.0 L, Ethyl Alcohol < 3.0 04/06/19 02:22: Serum , Qual NEGATIVE 04/06/19 02:30: Urine Opiates Screen NEGATIVE, Urine Methadone Screen NEGATIVE, Ur Barbiturates Screen NEGATIVE, Ur Phencyclidine Scrn NEGATIVE, Ur Amphetamines Screen NEGATIVE, U Methamphetamin-MDMA NEGATIVE, U Benzodiazepines Scrn NEGATIVE, Urine Cocaine Screen NEGATIVE, U Cannabinoids Screen POSITIVE H, Ur Drug Screen Comment 04/06/19 04:35: Miscellaneous Test Cancelled 04/06/19 04:35: WBC 12.1 H, RBC 4.42, Hgb 13.8, Hct 40.2, MCV 91.0, MCH 31.2, MCHC 34.3, RDW Std Deviation 42.0, RDW Coeff of Jules 12.6, Plt Count 293, MPV 9.4, Immature Gran % (Auto) 0.300, Neut % (Auto) 64.9, Lymph % (Auto) 26.3, [place] % (Auto) 6.8, Eos % (Auto) 1.2, Baso % (Auto) 0.5, Absolute Neuts (auto) 7.9 H, Absolute Lymphs (auto) 3.18, Nucleated RBC % 0 04/06/19 04:35: Sodium 142, Potassium 3.4 L, Chloride 109 H, Carbon Dioxide 23.0, Anion Gap 10, BUN 12, Creatinine 0.96, Estim Creat Clear Calc 72.08, Est GFR (MDRD) Af Amer 92, Est GFR (MDRD) Non-Af 76, BUN/Creatinine Ratio 12.5, Glucose 108 H, Calcium 8.5 04/06/19 04:35: Salicylates 16.2 04/06/19 06:55: Salicylates 16.2 Current Medications Ondansetron HCl (Zofran) 4 mg IV Q8H PRN PRN PRN Reason: NAUSEA/VOMITING Sodium Chloride () 10 - 40 ml IV UD PRN PRN Reason: SALINE FLUSH Last Admin: 04/06/19 04:40 Dose: 10 ml Documented by: Medical Necessity - Tobacco Use Smoking Status: Current every day smoker Tobacco Use: Secondhand, Cigarettes Assessment/Plan All Active Problems Retained products of conception after miscarriage (Acute) Suicide attempt (Acute) 1. Suicide attempt * Patient took a large quantity of aspirin and attempt to kill herself. * Currently, the patient is medically stable and can be evaluated by the crisis team to assist in regards to further psychiatric help 2. Large ingestion of aspirin * Patient has no symptoms of aspirin overdose * Did receive charcoal in the emergency room * And levels here have been within normal limits * Level did go up but still within normal limits. Repeat level still pending but change her current management 3. Bipolar disorder * On lamictal but apparently noncompliant. Will resume Lamictal and further adjustments can be determined by psychiatry 4. VTE prophylaxis: Low risk. Not indicated. Code Visit Procedures: Other Procedure - See Report - non billable rounding.
[2019-04-06 09:50] LABS: Salicylate 13.9 mg/dL (2.8-20.0)
[2019-04-06 12:03] LABS: Salicylate 13.6 mg/dL (2.8-20.0)
--- NOTE | 2019-04-06 12:59 | DCINST_ITS ---
- Discharge Diagnoses Current Active Problems: Current Active and Chronic Problems Suicide attempt (Acute) You will use the following diet at home:: No restrictions Your food should be the consistency of: Regular Discharge Activity: Return to Normal Activity Allergies/Adverse Reactions: Allergies No Known Allergies Allergy (Verified 05/25/18 15:48) Medications to take at Discharge Lamotrigine [Lamictal] 25 mg PO DAILY 04/06/19 Primary Care Physician: Care Physician,No Primary [Primary Care Provider] - Test Results: Test results from this visit will be discussed in further detail at your follow- up appointment, if applicable. Proposed Discharge Date: 04/06/19
--- NOTE | 2019-04-06 13:00 | DS.PCM_ITS ---
Discharge Date and Diagnosis - Problem List Patient Problems: Active and Suspected Problems Suicide attempt (Acute) Date of Admission: 04/06/19 Date of Discharge: 04/06/19 - Primary Discharge Diagnosis Active and Suspected Problems Suicide attempt (Acute) Hospital Course and Treatment Consultations 04/06/19 04:29 Crisis [Consult: Mental Health/Crisis] Routine Reason for consult?: suicide attempt by aspirin OD Date Notified:: 04/06/19 Time notified:: 08:25 Operations: None Procedures: None Summary of Care Provided: The patient is a 23 year old F presents suicide attempt.[] 1. Suicide attempt * Patient took a large quantity of aspirin and attempt to kill herself. * Currently, the patient is medically stable and can be evaluated by the crisis team to assist in regards to further psychiatric help * to go to psychiatric unit in stable condition. 2. Large ingestion of aspirin * Patient has no symptoms of aspirin overdose * Did receive charcoal in the emergency room * And levels here have been within normal limits * Level did go up but still within normal limits. Repeat level still pending but change her current management 3. Bipolar disorder * On lamictal but apparently noncompliant. Will resume Lamictal and further adjustments can be determined by psychiatry Patient Problems: Active and Suspected Problems Suicide attempt (Acute) - Physical Exam Vital Signs Temp Pulse Resp BP Pulse Ox 36.0 C L 68 14 109/85 H 99 04/06/19 11:00 04/06/19 11:00 04/06/19 11:00 04/06/19 11:00 04/06/19 11:00 Oxygen Delivery Method Room Air Weight: 88.2 kg Body Mass Index (BMI) 35.5 Intake and Output for Last 24 Hours 04/04/19 04/05/19 04/06/19 23:59 23:59 23:59 Intake Total 250 / 250 Balance 250 / 250 Laboratory Tests Past 24 Hrs 04/06/19 04/06/19 04/06/19 02:22 02:22 02:22 WBC 12.5 H RBC 4.81 Hgb 15.2 H Hct 44.1 MCV 91.7 MCH 31.6 MCHC 34.5 RDW Std Deviation 41.8 RDW Coeff of Jules 12.5 Plt Count 322 MPV 9.0 Immature Gran % (Auto) 0.500 Neut % (Auto) 62.0 Lymph % (Auto) 30.8 [place] % (Auto) 5.0 Eos % (Auto) 1.2 Baso % (Auto) 0.5 Absolute Neuts (auto) 7.7 Absolute Lymphs (auto) 3.85 Nucleated RBC % 0 Sodium 138 Potassium 3.5 Chloride 107 Carbon Dioxide 26.0 Anion Gap 5 BUN 14 Creatinine 0.99 Estim Creat Clear Calc 69.90 Est GFR (MDRD) Af Amer 89 Est GFR (MDRD) Non-Af 74 BUN/Creatinine Ratio 14.2 Glucose 104 Calcium 8.6 Serum , Qual Salicylates 12.2 Urine Opiates Screen Urine Methadone Screen Acetaminophen < 2.0 L Ur Barbiturates Screen Ur Phencyclidine Scrn Ur Amphetamines Screen U Methamphetamin-MDMA U Benzodiazepines Scrn Urine Cocaine Screen U Cannabinoids Screen Ur Drug Screen Comment Ethyl Alcohol < 3.0 Miscellaneous Test 04/06/19 04/06/19 04/06/19 02:22 02:30 04:35 WBC RBC Hgb Hct MCV MCH MCHC RDW Std Deviation RDW Coeff of Jules Plt Count MPV Immature Gran % (Auto) Neut % (Auto) Lymph % (Auto) [place] % (Auto) Eos % (Auto) Baso % (Auto) Absolute Neuts (auto) Absolute Lymphs (auto) Nucleated RBC % Sodium Potassium Chloride Carbon Dioxide Anion Gap BUN Creatinine Estim Creat Clear Calc Est GFR (MDRD) Af Amer Est GFR (MDRD) Non-Af BUN/Creatinine Ratio Glucose Calcium Serum , Qual NEGATIVE Salicylates Urine Opiates Screen NEGATIVE Urine Methadone Screen NEGATIVE Acetaminophen Ur Barbiturates Screen NEGATIVE Ur Phencyclidine Scrn NEGATIVE Ur Amphetamines Screen NEGATIVE U Methamphetamin-MDMA NEGATIVE U Benzodiazepines Scrn NEGATIVE Urine Cocaine Screen NEGATIVE U Cannabinoids Screen POSITIVE H Ur Drug Screen Comment Ethyl Alcohol Miscellaneous Test Cancelled 04/06/19 04/06/19 04/06/19 04:35 04:35 04:35 WBC 12.1 H RBC 4.42 Hgb 13.8 Hct 40.2 MCV 91.0 MCH 31.2 MCHC 34.3 RDW Std Deviation 42.0 RDW Coeff of Jules 12.6 Plt Count 293 MPV 9.4 Immature Gran % (Auto) 0.300 Neut % (Auto) 64.9 Lymph % (Auto) 26.3 [place] % (Auto) 6.8 Eos % (Auto) 1.2 Baso % (Auto) 0.5 Absolute Neuts (auto) 7.9 H Absolute Lymphs (auto) 3.18 Nucleated RBC % 0 Sodium 142 Potassium 3.4 L Chloride 109 H Carbon Dioxide 23.0 Anion Gap 10 BUN 12 Creatinine 0.96 Estim Creat Clear Calc 72.08 Est GFR (MDRD) Af Amer 92 Est GFR (MDRD) Non-Af 76 BUN/Creatinine Ratio 12.5 Glucose 108 H Calcium 8.5 Serum , Qual Salicylates 16.2 Urine Opiates Screen Urine Methadone Screen Acetaminophen Ur Barbiturates Screen Ur Phencyclidine Scrn Ur Amphetamines Screen U Methamphetamin-MDMA U Benzodiazepines Scrn Urine Cocaine Screen U Cannabinoids Screen Ur Drug Screen Comment Ethyl Alcohol Miscellaneous Test 04/06/19 04/06/19 04/06/19 06:55 09:00 11:15 WBC RBC Hgb Hct MCV MCH MCHC RDW Std Deviation RDW Coeff of Jules Plt Count MPV Immature Gran % (Auto) Neut % (Auto) Lymph % (Auto) [place] % (Auto) Eos % (Auto) Baso % (Auto) Absolute Neuts (auto) Absolute Lymphs (auto) Nucleated RBC % Sodium Potassium Chloride Carbon Dioxide Anion Gap BUN Creatinine Estim Creat Clear Calc Est GFR (MDRD) Af Amer Est GFR (MDRD) Non-Af BUN/Creatinine Ratio Glucose Calcium Serum , Qual Salicylates 16.2 13.9 13.6 Urine Opiates Screen Urine Methadone Screen Acetaminophen Ur Barbiturates Screen Ur Phencyclidine Scrn Ur Amphetamines Screen U Methamphetamin-MDMA U Benzodiazepines Scrn Urine Cocaine Screen U Cannabinoids Screen Ur Drug Screen Comment Ethyl Alcohol Miscellaneous Test Discharge Diet: No Restrictions Discharge Activity: Return to Normal Activity Home Medications: Medications to take at Discharge Lamotrigine [Lamictal] 25 mg PO DAILY 04/06/19 Primary Care Physician: Care Physician,No Primary [Primary Care Provider] - Disposition: Home Minutes spent on discharge:: 32 Patient Condition:: Stable Medical Necessity - Tobacco Use Smoking Status: Current every day smoker Tobacco Use: Secondhand, Cigarettes Meaningful Use Info Meaningful Use Diagnoses (Choose all that apply): None applicable Code Visit OBSV E&M: 45649 Observation care discharge
--- NOTE | 2019-04-06 13:05 | CASEMGMT ---
RN CM Note. 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 RN CM intro role of CM to patient. She states Jenniffer is her maiden name, but her name is Humbreto. Noted Pt's stacker driver's ID in chart, most recent from 05/26/18 shows name as Alba Millie RodriguezMervin DIANAN RN ACM
[2019-04-07 03:00] VITALS: BP 110/67; PULSE 67; RESP 16; TEMP 36.7; O2SAT 99
[2019-04-07 07:54] VITALS: BP 115/70; PULSE 64; RESP 14; TEMP 36.4; O2SAT 100
[2019-04-07] MEDS: Calcium Carbonate 500 MG Tablet 1000 MG PO (08:14)
--- NOTE | 2019-04-07 08:23 | PCM.PN.HOSP ---
Patient Problems: Active and Suspected Problems Suicide attempt (Acute) Subjective: Feels tired. Vitals/I&O's: Vital Signs Temp Pulse Resp BP Pulse Ox 36.4 C L 64 14 115/70 100 04/07/19 07:54 04/07/19 07:54 04/07/19 07:54 04/07/19 07:54 04/07/19 07:54 Oxygen Delivery Method Room Air Weight: 88.2 kg Body Mass Index (BMI) 35.5 Intake and Output for Last 24 Hours 04/05/19 04/06/19 04/07/19 23:59 23:59 23:59 Intake Total 700 / 950 490 / 490 Balance 700 / 950 490 / 490 General: Alert, No apparent distress, - - lying in bed. not diaphoretic. HEENT: Atraumatic, Normocephalic Psych/Mental Status: Appropriate, Flat Affect Laboratory Results 04/06/19 09:00: Salicylates 13.9 04/06/19 11:15: Salicylates 13.6 Current Medications Lamotrigine (Lamictal Chew) 25 mg PO DAILY [facility] Last Admin: 04/06/19 11:13 Dose: Not Given Documented by: Nicotine (Nicoderm Cq (Pbkc)) 21 mg TRANSDERM. DAILY [facility] Last Admin: 04/06/19 12:04 Dose: 21 mg Documented by: Ondansetron HCl (Zofran) 4 mg IV Q8H PRN PRN PRN Reason: NAUSEA/VOMITING Medical Necessity - Tobacco Use Smoking Status: Current every day smoker Tobacco Use: Secondhand, Cigarettes Assessment/Plan All Active Problems Retained products of conception after miscarriage (Acute) Suicide attempt (Acute) 1. Suicide attempt Patient took a large quantity of aspirin and attempt to kill herself. Currently, the patient is medically stable and can be evaluated by the crisis team to assist in regards to further psychiatric help Discharge to [facility] today. 2. Large ingestion of aspirin Patient has no symptoms of aspirin overdose Did receive charcoal in the emergency room And levels here have been within normal limits Level did go up but still within normal limits. Repeat level still pending but change her current management 3. Bipolar disorder On lamictal but apparently noncompliant. Will resume Lamictal and further adjustments can be determined by psychiatry 4. VTE prophylaxis: Low risk. Not indicated. Code Visit Inpatient E&M: 46303 Disch Hosp
== END 2019-04-07 08:30 ==
LOC: ED 03:10 → ICU 04:16
PROVIDERS: Internal Medicine Critical Care Medicine; Admitting Provider Family Medicine; Emergency Provider Emergency Medicine
DX: T39.012A Poisoning by aspirin, intentional self-harm, initial encounter (principal); F32.9 Major depressive disorder, single episode, unspecified; F31.9 Bipolar disorder, unspecified; Z79.899 Other long term (current) drug therapy; F17.210 Nicotine dependence, cigarettes, uncomplicated
CPT/HCPCS: 80048; 80307; 80320; 80329; 84703; 85025; 93005; 96374; 99218; 99285; A4216; G0378; G0480; J2405

== ENCOUNTER 2019-05-13 19:38 | Emergency (ER) | payer MEDICAID, SELFPAY ==
[2019-04-06 04:24] VITALS: BMI 35.5
[2019-05-13 19:41] VITALS: BP 122/69; PULSE 107; RESP 18; TEMP 36.5; O2SAT 98; BMI 35.2
[2019-05-13] MEDS: Ketorolac 30 MG/ML Syringe IV (20:12)
[2019-05-13] MEDS: 0.9% Normal Saline 1,000 ML 999 ML IV (20:12)
[2019-05-13] MEDS: proCHLORPERazine 10 MG/2 ML Vial IV (20:12)
[2019-05-13] MEDS: DiphenhydrAMINE 50 MG/ML Syringe 25 MG IV (20:12)
--- NOTE | 2019-05-13 21:34 | ED.DCSUM_ITS ---
- ER Visit Summary Date of Service: 05/13/19 Chief Complaint: Headache History of Present Illness: The patient is a 23 F who presents with a headache. Is been ongoing for 3 days. She has a throbbing on the left side of her head. She states is behind her eye as well. She has had nausea and vomiting with this. She also admits to blurry vision and photophobia on the left-hand side. She tried Excedrin, ibuprofen and Tylenol without relief. She has no history of migraines. She denies any fevers. She denies any falls or trauma Physical Examination: Vital signs reviewed. HEENT exam unremarkable. Heart is regular rate and rhythm without murmurs. Lungs are clear to auscultation. Abdomen is soft and nontender. Extremities reveal no edema. Skin exam normal. Neurologic exam normal. Test Results: None performed Emergency Department Course and Treatment: Patient was given Compazine, Benadryl and Toradol. She did have a little bit of a reaction of the Compazine but then calm down and fell asleep. She admits that her pain is better. She had a normal neurologic examination. I do not feel that CAT scan of the head is necessary. Patient will be discharged to use NSAIDs for pain at home. Treatment Plan: [] Disposition: Discharge Impression: Headache This note was generated with [employer] dictation software. It may contain incorrect words, spelling, and punctuation that were not noted in review of the chart prior to signing ED Disposition - Plan for ED Patient: Referrals: Care Physician,No Primary [Primary Care Provider] -
--- NOTE | 2019-05-13 21:35 | ED.DEP ---
ED Disposition - Plan for ED Patient: Disposition: Home or Assisted Living Instructions: HEADACHE, Unspecified Referrals: Care Physician,No Primary [Primary Care Provider] -
[2019-05-13 22:26] VITALS: BP 112/79; PULSE 81; RESP 16; O2SAT 99
--- NOTE | 2019-05-13 22:27 | ED.RN ---
THIS NURSE REVIEWED D/C INSTRUCTIONS WITH PT. PT VERBALIZED UNDERSTANDING OF INSTRUCTIONS. IV D/C. IV CATHETER INTACT. PT TOLERATED WELL. PT DENIES FURTHER NEEDS OR QUESTIONS AT THIS TIME. PT AMBULATES FROM ROOM ON OWN WITHOUT ASSISTANCE FROM STAFF
== END 2019-05-13 22:28 | disposition home or self-care (01) ==
PROVIDERS: Emergency Provider Emergency Medicine
DX: R51 Headache (principal); R11.2 Nausea with vomiting, unspecified; H53.8 Other visual disturbances; H53.142 Visual discomfort, left eye; F32.9 Major depressive disorder, single episode, unspecified; Z79.899 Other long term (current) drug therapy; Z72.0 Tobacco use
CPT/HCPCS: 96361; 96374; 96375; 99284; J7030; A4216

== ENCOUNTER 2019-06-14 01:26 | Emergency (ER) | payer MEDICAID, SELFPAY ==
[2019-06-14 01:27] VITALS: BP 136/82; PULSE 116; RESP 20; TEMP 36.6; O2SAT 98; BMI 36.1
--- NOTE | 2019-06-14 01:39 | US_ITS ---
STUDY: FIRST TRIMESTER OBSTETRICAL ULTRASOUND REASON FOR EXAM: Female, 23 years old left lower quadrant pain LMP: Uncertain TECHNIQUE: Transvaginal ultrasound was performed. Multiple nieves scale and color duplex Doppler images were obtained. TECHNICAL QUALITY: Adequate. PRIOR ULTRASOUND: None. FINDINGS: There is visualization of a single gestational sac in a normal intrauterine position. The mean sac diameter (MSD) measures 9 mm, indicating an estimated gestational age (EGA) of 5 weeks, 4 days. The gestational sac shape is within normal limits. There is a visualized yolk sac. The yolk sac measures 2.4 mm. The placenta is non-visualized. There is visualization of a intrauterine gestation The crown-rump length (CRL) measures 1.9 mm. No heart tones are identified The estimated date of delivery (TIMOTHY) by US is approximately 5 weeks 4 days. The last menstrual period is uncertain by clinical history estimated age is approximately 7 weeks. The estimated delivery by clinical history is estimated at approximately 01/31/2020. . The uterus measures 8.5 x 5.9 x 4.1 cm. There is no demonstrated uterine fibroid. The cervix is closed. The right ovary measures 3.9 x 2.2 x 1.7 cm. There is no right ovarian cyst. There is no visualized right adnexal mass or complex lesion. The left ovary measures 3.5 x 1.8 x 1.8 cm. There is no left ovarian cyst. There is no visualized left adnexal mass or complex lesion. There is no fluid in the cul de sac. US/Transvaginal w/Preg US IMPRESSION: Intrauterine gestation, no heart tones are identified, this is likely too early to detect. However failed intrauterine cannot be excluded. Follow-up ultrasound in one week would be recommended to document heart tones. Electronically Signed: Angel Ayers, at 3:48 EDT Tel , Service support ,
[2019-06-14 01:58] LABS: Absolute Lymphocyte Count 3.16 X10^3/uL (0.83-4.51); Absolute Neutrophil Count 6.4 X10^3/uL (2.0-7.7); Basophil# 0.07 X10^3/uL; Basophil% 0.7 % (0-1); Eosinophil# 0.19 X10^3/uL; Eosinophils% 1.8 % (0-5); Hematocrit 39.7 % (37-47); Hemoglobin 13.8 g/dL (12.0-15.0); Lymphocyte # 3.16 X10^3/ul (4.0); Lymphocyte % 29.9 % (19-41); Mean Corp Hgb Conc 34.8 g/dL (32-36); Mean Corpuscular Hgb 32.4 pg (27.0-32.0); Mean Corpuscular Volume 93.2 fL (81-99); Mean Platelet Vol. 9.3 fl (6.2-12.0); Monocyte# 0.71 X10^3/uL; Monocyte% 6.7 % (0-10); NRBC Flagged by Analyzer 0 % (0-5); Neutrophil # 6.39 X10^3/uL (2.7-7.7); Neutrophil % 60.5 % (47-70); Platelet Count 303 K/mm3 (150-450); RBC Distribution Width CV 12.7 % (11.6-14.6); RBC Distribution Width SD 43.7 fl (35.1-43.9); Red Blood Count 4.26 M/mm3 (4.2-5.4); White Blood Count 10.6 K/mm3 (4.4-11.0)
--- NOTE | 2019-06-14 02:08 | ED.VIS.GEN ---
History of Present Illness Chief Complaint: Abd Pain Informant: Patient Onset: Days - 2 Narrative: Patient is a 23-year-old female presenting with left lower quadrant abdominal pain. She is G4, P1 and currently 6 weeks by last menstrual period. She states she had a positive home test and then went to clinic where she had another positive test. She was told then that she was 5 weeks by last menstrual period. She has not had any ultrasound to confirm intrauterine . She denies any vaginal bleeding or abnormal discharge. Chart review patient shows that patient is a positive. Patient had 2 days of left lower quadrant abdominal pain. She states it reminds her of menstrual cramps. It is been constant. It does not radiate. She denies any associated fever, chills, lightheadedness, nausea, vomiting or diarrhea. She denies any other complaints at this time. She did not take anything for pain prior to arrival. Past Medical History - Allergies and Home Meds Allergies/Adverse Reactions: Allergies No Known Allergies Allergy (Verified 06/14/19 01:33) Primary Care Physician: Care Physician,No Primary [Primary Care Provider] - Past Medical History: None Surgical History: - - D&C x2 Lives: Spouse/ Significant Other Smoking Status: Never smoker - Family History Maternal Family History: Reports: No pertinent history Review of Systems All systems negative except as indicated Gastrointestinal: Reports: Abdominal pain - Left lower quadrant Genitourinary: Reports: - - Approximately 6 weeks Physical Exam Vital Signs/Narrative: Vital Signs Temp Pulse Resp BP Pulse Ox 06/14/19 01:27 97.8 F 116 H 20 H 136/82 H 98 Inital Vital Signs reviewed: Yes General: Well nourished, Well developed, No Acute Distress Head: Normocephalic, Atraumatic Eyes: Perrl, EOMI ENT: Moist mucous membranes, No rhinorrhea Neck: Supple, Nontender Cardiovascular: Regular rate, Regular rhythm, No murmurs Respiratory: No distress, CTA bilaterally, Chest nontender Abdomen: Soft, Nondistended, Normal bowel sounds, Tender - Mild tenderness in the left lower quadrant. Negative for: Guarding, Rebound tenderness Back: Nontender, Normal Inspection. Negative for: CVA tenderness Extremities: Nontender, No edema Skin: Normal color, No rash Neurological: Alert, Oriented x3, Cranial nerves II-XII grossly intact, Normal Strength, Normal Sensation Psychological: Normal affect, Normal Mood Diagnostic/Tx/Re-eval Clinical Impression(s) from Imaging Studies Obstetrics Ultrasound 06/14/19 01:39 IMPRESSION: Intrauterine gestation, no heart tones are identified, this is likely too early to detect. However failed intrauterine cannot be excluded. Follow-up ultrasound in one week would be recommended to document heart tones. Electronically Signed: Angel Ayers, at 3:48 EDT Tel , Service support , Laboratory Data 06/14/19 06/14/19 06/14/19 01:47 01:47 02:10 WBC 10.6 RBC 4.26 Hgb 13.8 Hct 39.7 MCV 93.2 MCH 32.4 H MCHC 34.8 RDW Std Deviation 43.7 RDW Coeff of Jules 12.7 Plt Count 303 MPV 9.3 Immature Gran % (Auto) 0.400 Neut % (Auto) 60.5 Lymph % (Auto) 29.9 [place] % (Auto) 6.7 Eos % (Auto) 1.8 Baso % (Auto) 0.7 Absolute Neuts (auto) 6.4 Absolute Lymphs (auto) 3.16 Nucleated RBC % 0 HCG, Quant 4603 H Urine Color Yellow Urine Clarity Clear Urine pH 7.0 Ur Specific [place] 1.015 Urine Protein Negative Urine Glucose (UA) Normal Urine Ketones Negative Urine Occult Blood Negative Urine Nitrite Negative Urine Bilirubin Negative Urine Urobilinogen Normal Ur Leukocyte Esterase Negative Urine RBC 0 SEEN Urine WBC 0 SEEN Ur Squamous Epith Cells 10-25 SEEN Amorphous Sediment 2+ Urine Bacteria 0 SEEN Urine Mucus 0 SEEN - Medical Decision Making She is evaluated for abdominal pain and early . She appears nontoxic in no acute distress. Patient is initially tachycardic however she attributes that to be very nervous. She does not have any vaginal bleeding. Chart review shows that she is Rh+ so she would not require RhoGam regardless. Bedside ultrasound was performed by myself which does not show any obvious intrauterine gestation it also does not show any free fluid. Beta-hCG is around 4000 which is appropriate for dates. Transvaginal ultrasound that showed intrauterine gestation with a pole however no heartbeat. Gestations measuring 5 weeks 4 days. Patient is informed of these findings. She is counseled to follow-up with her CIRCUIT BOARD DRAFTER, Dr. Grande. She is counseled on the risk of miscarriage in any and need for return to the emergency room. She is already taking vitamins. Patient is counseled on signs and symptoms requiring return to the emergency room. Patient verbalizes agreement and understand this plan. Patient discharged home in stable and improved condition. ED Disposition - Plan for ED Patient: Disposition: Home or Assisted Living Diagnosis: Abdominal pain during in first trimester Instructions: ABDOMINAL PAIN, Early Referrals: Care Physician,Shannon Primary [Primary Care Provider] - Martita Rodriguez MD [STAFF PHYSICIAN] - Additional Instructions: Your ultrasound today shows that you are approximately 5 weeks and 4 days. There is no sign of an ectopic . Please call your CIRCUIT BOARD DRAFTER to establish follow-up. Continue take vitamins. Return to emergency room if you have worsening pain or vaginal bleeding.
[2019-06-14 02:15] LABS: Bacteria 0 SEEN /hpf (None Seen); Mucous, Urine 0 SEEN /hpf (<or=2+); Red Blood Cells-Urine 0 SEEN /hpf (0-5); White Blood Cells 0 SEEN /hpf (0-5)
[2019-06-14] MEDS: 0.9% Normal Saline 1,000 ML 1000 ML IV (02:15)
[2019-06-14 02:19] LABS: Color, Urine Yellow (Yellow); Glucose, Dipstick Normal (Normal); Ketone-Dipstick Negative (Negative); Leukocyte Esterase-Dipstick Negative /ul (Negative); Nitrite-Dipstick Negative (Negative); Occult Blood-Urine Negative /ul (Negative); Protein-Dipstick Negative (Negative); Specific Gravity, Urine 1.015 (1.002-1.030); Urine Bilirubin Dipstick Negative (Negative); Urine Clarity Clear (Clear); Urine Urobilinogen Normal (Normal)
[2019-06-14 02:25] LABS: Amorphous Sediment 2+; Squamous Epithelial Cells - UA 10-25 SEEN /hpf (5-10)
[2019-06-14 02:32] LABS: hCG Titer Quant., Serum 4603 mIU/mL (1-3)
[2019-06-14 04:00] VITALS: BP 134/81; PULSE 85; RESP 16; O2SAT 98
== END 2019-06-14 04:14 | disposition home or self-care (01) ==
PROVIDERS: Emergency Provider Emergency Medicine
DX: O26.891 Other specified pregnancy related conditions, first trimester (principal); R10.32 Left lower quadrant pain; Z3A.01 Less than 8 weeks gestation of pregnancy
CPT/HCPCS: 76817; 81001; 84702; 85025; 96360; 96361; 99282; J7030

== ENCOUNTER 2019-06-16 11:16 | Emergency (ER) | payer MEDICAID, SELFPAY ==
[2019-06-16 11:17] VITALS: BP 126/76; PULSE 104; RESP 18; TEMP 36.3; BMI 35.4
[2019-06-16 13:12] LABS: hCG Titer Quant., Serum 8763 mIU/mL (1-3)
--- NOTE | 2019-06-16 13:27 | ED.VISSUMM ---
- ER Visit Summary Date of Service: 06/16/19 Chief Complaint: [Vaginal bleeding] History of Present Illness: The patient is a 23 F [patient presents with complaint of spotting that started last evening. Patient states she is had 2 pads that she is gone through this morning however they were not saturated she is just having small amounts of bleeding. Patient was seen in the ER 2 days ago for complaint of lower abdominal pain and . Patient had an ultrasound that showed an intrauterine gestation. Patient blood type is a positive. Patient's quant at the time was 4603. Patient was advised that should she have any bleeding to return to the emergency department. Patient is G4, P1 and has had 2 other miscarriages.] Physical Examination: [HEENT-PERRLA, EOMI. Cranial nerves II through XII grossly intact. TMs clear. Mucous membranes moist. No adenopathy. Cardiovascular-regular rate and rhythm without murmur or ectopy Lungs-clear to auscultation, chest wall stable without crepitus or subcu emphysema Abdomen-normoactive bowel sounds, soft, nontender, no rebound or rigidity, no peritoneal signs. Extremities-intact ?4, normal range of motion, normal pulses, atraumatic] Test Results: [Repeat quant obtained today was 8763.] Emergency Department Course and Treatment: [This point I do not feel patient needs a repeat of her ultrasound as her quant is doubled essentially in the last 2 days. Patient case will be discussed with her EVENTS TRAFFIC CONTROLLER or the physician aircraft load controller. Patient does not need RhoGam.] Treatment Plan: [Follow-up with her EVENTS TRAFFIC CONTROLLER. Patient advised to return if severe pain, heavy bleeding as far as going through more than a pad an hour for 4 consecutive hours. Patient to return if condition should worsen anyway.] Disposition: [Discharged home in stable condition.] Impression: [Threatened in first trimester ] This note was generated with [employer] dictation software. It may contain incorrect words, spelling, and punctuation that were not noted in review of the chart prior to signing ED Disposition - Plan for ED Patient: Referrals: Care Physician,No Primary [Primary Care Provider] -
--- NOTE | 2019-06-16 13:31 | ED.DEP ---
ED Disposition - Plan for ED Patient: Instructions: POSSIBLE MISCARRIAGE (Threatened ) Referrals: Care Physician,No Primary [Primary Care Provider] - Martita Rodriguez MD [STAFF PHYSICIAN] - 3-5 Days
[2019-06-16 13:47] VITALS: BP 115/76; PULSE 80; RESP 16; O2SAT 100
[2019-06-16 14:29] VITALS: BP 117/87; PULSE 61; RESP 16; O2SAT 96
--- NOTE | 2019-06-16 14:29 | ED.RN ---
DISCHARGE INSTRUCTIONS GIVEN TO AND REVIEWED WITH PATIENT, PATIENT DENIES QUESTIONS OR CONCERNS AND VOICES UNDERSTANDING OF DISCHARGE INSTRUCTIONS. PT AMBULATES OUT OF ROOM WITHOUT DIFFICULTY.
== END 2019-06-16 14:30 | disposition home or self-care (01) ==
PROVIDERS: Emergency Provider Emergency Medicine
DX: O20.0 Threatened abortion (principal); O99.331 Smoking (tobacco) complicating pregnancy, first trimester; F17.200 Nicotine dependence, unspecified, uncomplicated; Z3A.00 Weeks of gestation of pregnancy not specified
CPT/HCPCS: 84702; 99282

== ENCOUNTER 2019-10-28 23:40 | Outpatient (CLI) | payer MEDICAID, SELFPAY ==
[2019-10-28 23:51] VITALS: BP 123/73; PULSE 100; TEMP 98.2; O2SAT 98
--- NOTE | 2019-10-29 00:13 | OB.TRI.NOTE ---
- Problem List (1) Pelvic pressure in , antepartum Status: Acute History of Present Illness Date of Service: 10/29/19 Was patient seen by the physician?: Yes Reason For Visit: LOW BACK PAIN Date of Service: 10/29/19 Final TIMOTHY: 02/09/20 Gestational age: 25 Weeks and 2 Days Allergies No Known Allergies Allergy (Verified 06/16/19 11:20) Review of Systems Gastrointestinal: Reports: Abdominal Pain Genitourinary: Reports: Urgency Physical Exam General: Alert, Oriented x3 Abdomen: Gravid Neurological: Cranial nerves II-XII grossly intact Impression/Plan Patient is at 25.2 weeks gestation here for pelvic pressure and lower back pain starting tonight while at work. Denies loss of fluid, vaginal bleeding or contractions. Positive movement. Feeling pressure when voiding and incomplete emptying at times. No dysuria or hematuria. 1. UA collected and sent 2. FHR/ TOCO 3. Suspected UTI/round ligament pain
[2019-10-29 00:19] VITALS: BMI 37.2
[2019-10-29 00:36] LABS: Color, Urine Yellow (Yellow); Glucose, Dipstick Normal (Normal); Ketone-Dipstick Negative (Negative); Leukocyte Esterase-Dipstick Negative /ul (Negative); Nitrite-Dipstick Negative (Negative); Occult Blood-Urine Negative /ul (Negative); Protein-Dipstick Negative (Negative); Urine Bilirubin Dipstick Negative (Negative); Urine Clarity Clear (Clear); Urine Urobilinogen Normal (Normal)
--- NOTE | 2019-10-29 00:57 | OB.TRI.PN ---
Progress Notes Date of Service: 10/29/19 Progress Note: Discussed UA results with patient. Answered questions and gave reassurance. Patient stated was just nervous due to hx. of miscarriage but feeling better since here. Discussed round ligament pain and possible use of support belt due to patient working on feet daily at [employer] Patient receptive to suggestions. PTL precautions discussed. Patient to keep scheduled appt. with office unless needs to be seen sooner. 1. 25.2 weeks gestation 2. Round ligament pain 3. Negative urine 4. Discharge home 5. Keep scheduled appointment. Laboratory Studies: Laboratory Tests 10/29/19 Range/Units 00:25 Urine Color Yellow (Yellow) Urine Clarity Clear (Clear) Urine pH 6.0 (5.0 - 8.0) Ur Specific [place] 1.020 (1.002-1.030) Urine Protein Negative (Negative) mg/dl Urine Glucose (UA) Normal (Normal) mg/dl Urine Ketones Negative (Negative) mg/dl Urine Occult Blood Negative (Negative) /ul Urine Nitrite Negative (Negative) Urine Bilirubin Negative (Negative) mg/dL Urine Urobilinogen Normal (Normal) mg/dl Ur Leukocyte Esterase Negative (Negative) /ul - Problem List (1) Pelvic pressure in , antepartum Status: Acute
== END 2019-10-29 01:10 | disposition home or self-care (01) ==
LOC: WPOUT 23:48 → WP 23:48
PROVIDERS: Advanced Practice Midwife; Visit Provider Obstetrics & Gynecology
DX: O26.892 Other specified pregnancy related conditions, second trimester (principal); R10.2 Pelvic and perineal pain; M54.5 Low back pain; Z3A.25 25 weeks gestation of pregnancy
CPT/HCPCS: 59025; 59050; 81002; 99218; G0378

== ENCOUNTER 2020-01-10 21:06 | Outpatient (CLI) | payer MEDICAID, SELFPAY ==
[2020-01-10] VITALS (7 sets, daily range): BP systolic 123–137; BP diastolic 62–79; PULSE 93–114; TEMP 36.8; O2SAT 97; BMI 40.4
[2020-01-10 22:42] LABS: Partial Thromboplast Time 23.7 Seconds (24.1-36.2)
[2020-01-10 22:43] LABS: Hematocrit 32.7 % (37-47); Hemoglobin 11.2 g/dL (12.0-15.0); Mean Corp Hgb Conc 34.3 g/dL (32-36); Mean Corpuscular Hgb 32.1 pg (27.0-32.0); Mean Corpuscular Volume 93.7 fL (81-99); Mean Platelet Vol. 9.4 fl (6.2-12.0); Platelet Count 318 K/mm3 (150-450); RBC Distribution Width CV 12.7 % (11.6-14.6); RBC Distribution Width SD 42.9 fl (35.1-43.9); Red Blood Count 3.49 M/mm3 (4.2-5.4); White Blood Count 14.9 K/mm3 (4.4-11.0)
[2020-01-10 23:09] LABS: AST(SGOT) 13 U/L (15-37); Alanine Aminotransfer ALT/SGPT 13 U/L (13-56); Creatinine, Serum 0.73 mg/dL (0.55-1.02); EST Glomerular Filtration Rate 104 mL/min (>60); Est Glom Filt Rate - Afr Amer 126 mL/min (>60); Estimated Creatinine Clearance 93.99 ml/min; Uric Acid 4.4 mg/dL (2.6-6.0)
[2020-01-10 23:10] LABS: Protein, Urine (Random) 16.4 mg/dL (<11.9); Protein:Creat Ratio 138 mg/g CRE (0-200)
--- NOTE | 2020-01-11 08:00 | OB.TRI.NOTE ---
History of Present Illness Date of Service: 01/10/20 Was patient seen by the physician?: No Reason For Visit: R/O LABOR, r/o PRE E Date of Service: 01/10/20 Final TIMOTHY: 02/09/20 Gestational age: 35 Weeks and 6 Days History of Present Illness: @ 35.5 wks- presents to r/o labor and PRE E. pt reports h/o PRE E with last - was seen in ER for increased swelling in LE and sent to L&D. Allergies No Known Allergies Allergy (Verified 01/10/20 22:27) Laboratory Studies: Laboratory Tests 01/10/20 01/10/20 01/10/20 Range/Units 22:24 22:24 22:24 WBC 14.9 H (4.4-11.0) K/mm3 RBC 3.49 L (4.2-5.4) M/mm3 Hgb 11.2 L (12.0-15.0) g/dL Hct 32.7 L (37-47) % MCV 93.7 (81-99) fL MCH 32.1 H (27.0-32.0) pg MCHC 34.3 (32-36) g/dL RDW Std Deviation 42.9 (35.1-43.9) fl RDW Coeff of Jules 12.7 (11.6-14.6) % Plt Count 318 (150-450) K/mm3 MPV 9.4 (6.2-12.0) fl PT 13.0 (11.7-14.9) SECONDS INR 1.0 APTT 23.7 L (24.1-36.2) Seconds Creatinine 0.73 (0.55-1.02) mg/dL Estim Creat Clear Calc 93.99 ml/min Est GFR (MDRD) Af Amer 126 (>60) mL/min Est GFR (MDRD) Non-Af 104 (>60) mL/min Uric Acid 4.4 (2.6-6.0) mg/dL AST 13 L (15-37) U/L ALT 13 (13-56) U/L U Random Total Protein (<11.9) mg/dL Urine Creatinine (NO RANGE EST.) mg/dL Protein/Creatinin Ratio (0-200) mg/g CRE 01/10/20 Range/Units 22:15 WBC (4.4-11.0) K/mm3 RBC (4.2-5.4) M/mm3 Hgb (12.0-15.0) g/dL Hct (37-47) % MCV (81-99) fL MCH (27.0-32.0) pg MCHC (32-36) g/dL RDW Std Deviation (35.1-43.9) fl RDW Coeff of Jules (11.6-14.6) % Plt Count (150-450) K/mm3 MPV (6.2-12.0) fl PT (11.7-14.9) SECONDS INR APTT (24.1-36.2) Seconds Creatinine (0.55-1.02) mg/dL Estim Creat Clear Calc ml/min Est GFR (MDRD) Af Amer (>60) mL/min Est GFR (MDRD) Non-Af (>60) mL/min Uric Acid (2.6-6.0) mg/dL AST (15-37) U/L ALT (13-56) U/L U Random Total Protein 16.4 H (<11.9) mg/dL Urine Creatinine 119.00 (NO RANGE EST.) mg/dL Protein/Creatinin Ratio 138 (0-200) mg/g CRE Physical Exam Vitals: Vital Signs Temp Pulse BP Pulse Ox 98.3 F 100 123/62 H 97 01/10/20 21:37 01/10/20 23:16 01/10/20 23:16 01/10/20 21:40 NST - FHR Rate Baby A Baseline: 130 Variability:: Moderate Accelerations:: 15 x 15 Decelerations:: None NST Reactive:: Yes FHR Category:: Category I Uterine Activity:: irregular Impression/Plan @ 35.5 wks, not in labor, Normal BP- well being established 1) PRE E labs normal- and BPs wnl- dc'd home 2) pt to follow up in office this week
== END 2020-01-10 23:20 | disposition home or self-care (01) ==
LOC: WPOUT 21:24 → OBT 21:25
PROVIDERS: Referring Provider Obstetrics & Gynecology; Visit Provider Obstetrics & Gynecology
DX: Z03.79 Encounter for other suspected maternal and fetal conditions ruled out (principal)
CPT/HCPCS: 59025; 59050; 82565; 82570; 84156; 84450; 84460; 84550; 85027; 85610; 85730; 94760; 99218; G0378

== ENCOUNTER 2020-01-25 01:38 | Inpatient (IN) | payer MEDICAID, SELFPAY ==
[2020-01-10 21:47] VITALS: BMI 40.4
[2020-01-25] VITALS (40 sets, daily range): BP systolic 104–175; BP diastolic 55–94; PULSE 67–136; RESP 14–18; TEMP 36.3–37.1; O2SAT 89–100; BMI 40.3
[2020-01-25] MEDS: Lactated Ringers 1,000 ML 50 ML IV (02:00)
[2020-01-25] MEDS: Lactated Ringers 500 ML 999 ML IV (02:20)
[2020-01-25 02:22] LABS: Absolute Lymphocyte Count 2.87 X10^3/uL (0.83-4.51); Absolute Neutrophil Count 12.2 X10^3/uL (2.0-7.7); Basophil# 0.05 X10^3/uL; Basophil% 0.3 % (0-1); Eosinophil# 0.15 X10^3/uL; Eosinophils% 0.9 % (0-5); Hematocrit 33.2 % (37-47); Hemoglobin 11.3 g/dL (12.0-15.0); Lymphocyte # 2.87 X10^3/ul (4.0); Lymphocyte % 17.4 % (19-41); Mean Corpuscular Hgb 32.4 pg (27.0-32.0); Mean Corpuscular Volume 95.1 fL (81-99); Mean Platelet Vol. 9.1 fl (6.2-12.0); Monocyte# 1.07 X10^3/uL; Monocyte% 6.5 % (0-10); NRBC Flagged by Analyzer 0 % (0-5); Neutrophil % 73.8 % (47-70); Platelet Count 379 K/mm3 (150-450); RBC Distribution Width CV 12.9 % (11.6-14.6); RBC Distribution Width SD 43.8 fl (35.1-43.9); Red Blood Count 3.49 M/mm3 (4.2-5.4); White Blood Count 16.5 K/mm3 (4.4-11.0)
[2020-01-25] MEDS: Ondansetron 4 MG/2 ML Vial IV (02:45)
[2020-01-25 03:09] LABS: Amphetamine Urine VISTA NEGATIVE (<1000 ng/mL); Barbiturate Urine VISTA NEGATIVE (< 200 ng/mL); Benzodiazepine Urine VISTA NEGATIVE (< 200 ng/mL); Cocaine Urine VISTA NEGATIVE (< 300 ng/mL); Ecstacy Urine VISTA NEGATIVE (< 500 ng/mL); Methadone Urine VISTA NEGATIVE (< 300 ng/mL); PCP Urine VISTA NEGATIVE (< 25 ng/mL); THC Urine VISTA NEGATIVE (< 50 ng/mL); Vista UDS pH Range 6
[2020-01-25] MEDS: fentaNYL-bupivacaine (epidural) 100 ML BAG EPIDURAL (03:14)
[2020-01-25 03:31] LABS: Bedside Glucose 98 mg/dL (70-110)
[2020-01-25 04:31] LABS: Bedside Glucose 99 mg/dL (70-110)
[2020-01-25] MEDS: Oxytocin 30 units/NS 500 ml 30 UNITS/500 ML IV.SOLN 334 UNITS IV (05:05)
--- NOTE | 2020-01-25 05:14 | PCM.OPRPT ---
Vaginal Delivery Maternal Presentation: Active Labor Amniotic Membrane Rupture Type: Spontaneous at home Amniotic Fluid Description: Clear Final TIMOTHY: 02/09/20 Final TIMOTHY Source: US <20 weeks Gestational age: 37 Weeks and 6 Days Date of Procedure: 01/25/20 Pre-Operative Diagnosis: labor Post-Operative Diagnosis: same Surgery/ Procedure Performed: Spontaneous Vaginal Delivery Type of Anesthesia: Epidural Description of Procedure: A vigorous male infant was delivered [TWAN] over an intact perineum. [A loose nuchal cord ?1 was easily reduced.] The remainder the infant was delivered with maternal pushing and gentle traction only in less than 15 seconds. The Pitocin infusion was initiated for active management of the third stage. The cord was clamped and cut [after 1 minute]. The infant was attended to by the waiting nursing staff. The placenta was delivered spontaneously and intact. The cervix and vagina were intact. Sponge and needle counts were correct. A vaginal sweep was completed by me. Presentation: JERILYN Placental Delivery Description: Spontaneous Placenta Disposition: [facility] Cord Vessel Description: 3 Vessels Nuchal Cord Compression: Without compression Cord Entanglement: Around neck x 1, loose Drain: - - none Infant A gender: Male - Basilio (1 minute): 8 (5 minute): 9 Episiotomy Description: None Laceration: None Medications given after delivery: IV Pitocin Complications: None
--- NOTE | 2020-01-25 05:16 | PCM.HP.OB ---
History Date of Admission: 04/06/19 Final TIMOTHY: 02/09/20 Final TIMOTHY Source: US <20 weeks Gestational age: 37 Weeks and 6 Days History of this : This is a 24 year-old, 4 para 1-0-2-1 who presents at 37-6/7 weeks gestation with spontaneous rupture of membranes. When she arrived she was found to be gwendolyn and entered active labor. After at approximately 6-20 20 at midnight. has been complicated to date by polyhydramnios and gestational diabetes not on insulin or medication. Past obstetrical history is significant for 1 vacuum-assisted vaginal delivery, and history of preeclampsia with the previous , she smoked cigarettes during the and has a history of depression. He also has a history of chlamydia during this . Allergies No Known Allergies Allergy (Verified 01/25/20 03:46) Home Medications: Home Medications Vits [Prenatabs FA] 1 tab PO DAILY 06/14/19 Ferrous Sulfate [Iron] 325 mg PO QODAY 01/10/20 Omeprazole [Prilosec] 10 mg PO DAILY 01/10/20 Smoking Status: Heavy Smoker (>10/day) Substance Use Type: Marijuana History Past Pregnancies: Past Pregnancies Delivery Date Name GA/ Weeks Outcome Route Wt Infant Sex Labor Length Anesthesia Delivery Location Provider FOB Expected Infant Delivery Method: Spontaneous Vaginal Review of Systems Constitutional: Denies: Chills, Fever Physical Exam Vitals: Vital Signs Temp Pulse BP Pulse Ox 98.1 F 93 129/67 H 89 01/25/20 04:19 01/25/20 05:14 01/25/20 05:14 01/25/20 04:02 General: Alert, Cooperative, No apparent distress Cardiovascular: Regular rate Lungs: Normal air movement Abdomen: Soft, Non Tender, Non-Distended, Gravid, Appropriate for Gestational Age Assessment/Plan All Active Problems Retained products of conception after miscarriage (Acute) Suicide attempt (Acute) Pelvic pressure in , antepartum (Acute) This is a 24 year-old, 4 para 1-0-2-1 at 37-6/7 weeks gestation with active labor. Estimated weight is less than 4500 g clinically and pelvis clinically adequate to expect vaginal delivery. May have epidural if needed. Group B strep prophylaxis was initiated.
[2020-01-25 06:16] LABS: Bedside Glucose 116 mg/dL (70-110)
[2020-01-25] MEDS: Naproxen 250 MG Tablet 500 MG PO ×2 (10:59→23:59)
[2020-01-26 04:08] VITALS: BP 104/55; PULSE 73
[2020-01-26 04:10] VITALS: BP 104/55; PULSE 73; RESP 18; TEMP 36.2
[2020-01-26 04:16] LABS: Bedside Glucose 71 mg/dL (70-110)
[2020-01-26 08:36] VITALS: BP 119/60; PULSE 92
[2020-01-26 08:39] VITALS: BP 119/60; PULSE 92; RESP 16; TEMP 36.3; O2SAT 99
--- NOTE | 2020-01-26 08:40 | PCM.PN.OB ---
Subjective: Patient seen at bedside, doing well. Resting and reports good pain control. Lochia decreasing. Bottle feeding due to infant having blood sugar issues. Voiding without difficulty. Intact perineum. Patient desires discharge home today. - Physical Exam Vitals/I&O's: Vital Signs Temp Pulse Resp BP Pulse Ox 97.4 F L 92 16 119/60 99 01/26/20 08:39 01/26/20 08:39 01/26/20 08:39 01/26/20 08:39 01/26/20 08:39 Oxygen Delivery Method Room Air Weight: 227 lb 8.273 oz Body Mass Index (BMI) 40.3 Intake and Output for Last 24 Hours 01/24/20 01/25/20 01/26/20 23:59 23:59 23:59 Intake Total 1555.84 / 1555.84 620 / 620 Output Total 1800 / 1800 Balance -244.16 / -244.16 620 / 620 General: Alert, Cooperative, No apparent distress HEENT: Atraumatic, PERRLA Lungs: Normal air movement Abdomen: Soft, Non Tender, Non-Distended Skin: No rashes Neurological: Cranial nerves II-XII grossly intact Psych/Mental Status: Normal Affect, Appropriate Laboratory Results 01/26/20 04:10: POC Glucose 71 Current Medications Acetaminophen (Tylenol) 1,000 mg PO Q8H PRN PRN PRN Reason: Pain Score 1-3/10 Bisacodyl (Dulcolax) 10 mg RECTAL UD PRN PRN Reason: If no BM Dextrose (D50w Syringe) 0 gm IV X1 PRN; Protocol PRN Reason: Hypoglycemia Dibucaine (Dibucaine) 1 applic TOPICAL TID PRN PRN; Protocol PRN Reason: Discomfort Glucagon () 1 mg IM .X1 PRN PRN Reason: Hypoglycemia Hydrocortisone (Hytone) 1 applic TOPICAL TID PRN PRN; Protocol PRN Reason: Discomfort Methylergonovine Maleate (Methergine) 0.2 mg IM X1 PRN PRN Reason: Excess bleeding/uterine atony Naproxen (Naprosyn) 500 mg PO Q8H PRN PRN PRN Reason: Pain Score 1-3/10 Last Admin: 01/25/20 23:59 Dose: 500 mg Documented by: Ondansetron HCl (Zofran) 4 mg IV Q4H PRN PRN PRN Reason: Nausea Prochlorperazine Edisylate (Compazine Iv) 10 mg IV Q6H PRN PRN PRN Reason: NAUSEA/VOMITING Senna/Docusate Sodium (Senokot-S, Adelina-Colace) 1 - 2 tablet PO DAILY PRN PRN PRN Reason: Constipation Simethicone (Mylicon) 80 mg PO PCHS PRN PRN Reason: Indigestion/Stomach pain Sodium Chloride () 5 - 15 ml IV UD PRN PRN Reason: SALINE FLUSH Medical Necessity - Tobacco Use Smoking Status: Heavy Smoker (>10/day) Assessment/Plan All Active Problems Retained products of conception after miscarriage (Acute) Suicide attempt (Acute) Pelvic pressure in , antepartum (Acute) A/P PPD #1 (over 24 hours)- Doing well Routine care Pain management Discharge home Follow up in office in 2 weeks
--- NOTE | 2020-01-26 08:48 | DCINST_ITS ---
Discharge Diet: No Restrictions Discharge Activity: Return to Normal Activity May resume sexual activity in: 6 weeks Lifting Restrictions: 25 lbs Additional Instructions: If you experience any of the following, contact your healthcare provider. * Bleeding that soaks a pad every hour for 2 hours * Fever 100.4 or higher * Unrelieved incision or abdominal pain * Swelling, redness, discharge or bleeding from your incision or episiotomy site * Your incision begins to separate * Problems urinating (including inability to urinate or burning while urinating). * Visual changes * Severe headache * Flu-like symptoms * Pain or redness in one of both of your breasts * Pain, warmth, tenderness or swelling in your legs, especially the calf area * Frequent nausea and vomiting * Symptoms of depression or anxiety If you experience any of the following, call 911 or go to the nearest Emergency Room. * Chest pain * Problems breathing * Seizure activity * Partial or complete paralysis of a body part, slurred speech, weakness or drooping of the face, or a sudden inability to walk or hold your balance Allergies/Adverse Reactions: Allergies No Known Allergies Allergy (Verified 01/25/20 03:46) Medications to take at Discharge Vits [Prenatabs FA] 1 tab PO DAILY 06/14/19 Ferrous Sulfate [Iron] 325 mg PO QODAY 01/10/20 Omeprazole [Prilosec] 10 mg PO DAILY 01/10/20 Please Follow Up With: Jo Rendon MD When: 2 weeks virtual visit, then 6 weeks in office Primary Care Physician: Care Physician,No Primary [Primary Care Provider] - Test Results: Test results from this visit will be discussed in further detail at your follow- up appointment, if applicable.
--- NOTE | 2020-01-26 08:48 | PCM.DCVAG ---
Discharge Diet: No Restrictions Discharge Activity: Return to Normal Activity May resume sexual activity in: 6 weeks Lifting Restrictions: 25 lbs Additional Instructions: If you experience any of the following, contact your healthcare provider. Bleeding that soaks a pad every hour for 2 hours Fever 100.4 or higher Unrelieved incision or abdominal pain Swelling, redness, discharge or bleeding from your incision or episiotomy site Your incision begins to separate Problems urinating (including inability to urinate or burning while urinating). Visual changes Severe headache Flu-like symptoms Pain or redness in one of both of your breasts Pain, warmth, tenderness or swelling in your legs, especially the calf area Frequent nausea and vomiting Symptoms of depression or anxiety If you experience any of the following, call 911 or go to the nearest Emergency Room. Chest pain Problems breathing Seizure activity Partial or complete paralysis of a body part, slurred speech, weakness or drooping of the face, or a sudden inability to walk or hold your balance Allergies/Adverse Reactions: Allergies No Known Allergies Allergy (Verified 01/25/20 03:46) Medications to take at Discharge Vits [Prenatabs FA] 1 tab PO DAILY 06/14/19 Ferrous Sulfate [Iron] 325 mg PO QODAY 01/10/20 Omeprazole [Prilosec] 10 mg PO DAILY 01/10/20 Please Follow Up With: Jo Rendon MD When: 2 weeks virtual visit, then 6 weeks in office Primary Care Physician: Care Physician,No Primary [Primary Care Provider] - Test Results: Test results from this visit will be discussed in further detail at your follow-up appointment, if applicable.
[2020-01-26 14:08] VITALS: BP 110/58; PULSE 86
[2020-01-26 14:10] VITALS: BP 110/58; PULSE 86; RESP 16; TEMP 36.9; O2SAT 99
[2020-01-26] MEDS: Naproxen 250 MG Tablet 500 MG PO (14:14)
== END 2020-01-26 17:40 | disposition home or self-care (01) | DRG 560 ==
LOC: WPOUT 01:42 → WP 01:42
PROVIDERS: Admitting Provider Obstetrics & Gynecology; Visit Provider Obstetrics & Gynecology
DX: O69.81X0 Labor and delivery complicated by cord around neck, without compression, not applicable or unspecified (principal); Z3A.37 37 weeks gestation of pregnancy; Z37.0 Single live birth; O40.3XX0 Polyhydramnios, third trimester, not applicable or unspecified; O24.429 Gestational diabetes mellitus in childbirth, unspecified control; O99.334 Smoking (tobacco) complicating childbirth; F17.210 Nicotine dependence, cigarettes, uncomplicated
CPT/HCPCS: 59025; 59050; 80307; 82962; 85025; 86850; 86900; 86901; 87635; 99218; G2023; J7120; G0378; J2405; U0003

== ENCOUNTER 2021-01-09 21:08 | Emergency (ER) | payer MEDICAID, SELFPAY ==
[2020-01-25 02:21] VITALS: BMI 40.3
[2021-01-09 21:10] VITALS: BP 116/65; PULSE 99; RESP 16; TEMP 36; O2SAT 97; BMI 37.2
--- NOTE | 2021-01-09 21:55 | EDS_ITS ---
HPI History of Present Illness Chief Complaint: Cough Informant: patient Narrative Narrative: 25-year-old female states for the past 4 days she has had a sore throat rhinorrhea earache with swallowing and a cough. She states that she needs to take a deep cough but just cannot because it makes her throat hurt. She notes some chills but no fever. She denies any rashes vomiting or diarrhea. She is a smoker. PFSH PFSH no medical history Home Medications NK 01/09/21 [History Last Taken Unknown] Allergy/AdvReac Type Severity Reaction Status Date / Time No Known Allergies Allergy Verified 01/09/21 21:09 Social History (Updated 01/09/21 @ 21:[address] Yong Snowden, DO) Smoking Status: Heavy Smoker (>10/day) substance use type: does not use ROS ROS ED Constitutional Constitutional ED: Reports chills; Denies weight loss Eyes Eyes: Denies change in vision or diplopia ENT ENT ED: Reports ear pain, rhinorrhea and sore throat Cardiovascular Cardiovascular: Denies chest pain, orthopnea, palpitations or racing heartbeat Respiratory/Chest Respiratory/Chest: Reports cough; Denies dyspnea or orthopnea Gastrointestinal Gastrointestinal: Denies abdominal pain, diarrhea, nausea or vomiting Genitourinary Genitourinary ED: Denies dysuria, hematuria or urinary frequency Musculoskeletal Musculoskeletal: Denies arthralgias or myalgias Integumentary Denies abscess or rash Neurologic Neurologic: Denies headache(s) or weakness Psychiatric Psychiatric: Denies anxiety, depression, suicidal ideation or suicidal thoughts Endocrine Endocrinology: Denies polydipsia, polyphagia or polyuria Allergic/Immunologic Allergic/Immunologic ED: Denies mouth swelling, tongue swelling or urticaria EXAM Physical Exam Const Vital Signs: 01/09/21 21:10 Temperature 96.8 F L Temperature Source Temporal Pulse Rate 99 Respiratory Rate 16 Blood Pressure 116/65 Blood Pressure Mean 82 Pulse Ox 97 Oxygen Delivery Method Room Air Positive well nourished and well developed General Appearance ED: well developed HEENT Reports normocephalic, head/scalp atraumatic and moist mucous membranes HEENT Narrative: Patient has prominent tonsils but there is no exudate or significant erythema. No palatal petechiae. Uvula appears normal. Eyes PERRL and EOMs intact bilaterally Neck no lymphadenopathy, supple and no JVD Resp normal respiratory effort and clear to auscultation bilaterally Cardio regular rate, regular rhythm and no murmurs GI normal to inspection, nondistended, normoactive bowel sounds and non-tender Palpation: soft Back/Spine no CVA tenderness and normal ROM Extremity normal to inspection General Extremety ED: Negative for edema General Extremity: Negative for edema Neuro oriented x3 and CN's II-XII intact bilaterally Sensorium / Orientation: alert Motor Exam: strength 5/5 throughout Psych mental status grossly normal Mood & Affect: Negative for depressed or tearful Skin no rashes or lesions noted and no wounds MDM MDM MDM Narrative Medical decision making narrative: My interpretation of the single view chest x- ray is no acute process. Covid test negative. Patient received a oral dose of Decadron. I think this is most likely a viral URI. Lab Data Attestation: I reviewed the patient's lab results. Radiography Diagnostic Testing: Radiology Impression Chest X-Ray 01/09/21 22:22 IMPRESSION: Normal. at 2252 Reported and signed by: Jaime Diallo MD Electronically Signed: Jaime Diallo MD at 22:51 EDT Tel , Service support , Discharge Plan Triage Chief Complaint: Cough Other Complaint: Sore Throat ED Provider: Yong Snowden Dx/Rx/DC Orders Clinical Impression: Viral URI with cough Instructions: ED URI, Viral, No Abx (Adult) Prescriptions: No Action NK RF: 0 Primary Care Provider: Care Physician,No Primary Referrals: Xi Pete MD [STAFF PHYSICIAN] - 1 Week if not improving (for primary care) Care Physician,No Primary [Primary Care Provider] - Disposition Disposition: Home, self care
--- NOTE | 2021-01-09 22:22 | RAD_ITS ---
HISTORY: cough EXAM: XR Chest 1 View: COMPARISON: March 15, 2018 FINDINGS: # of images incl. paperwork: 1 Lungs are clear. Heart is not enlarged. No acute osseous pathology perceived. Pulmonary vascularity is distinct. No effusions. RAD/Chest 1 View (Portable) IMPRESSION: Normal. at 2252 Reported and signed by: Jaime Diallo MD Electronically Signed: Jaime Diallo MD at 22:51 EDT Tel , Service support ,
[2021-01-09] MEDS: dexAMETHasone 10 MG/ML Vial PO.IVFORM (23:04)
[2021-01-09 23:45] VITALS: BP 110/68; PULSE 84; RESP 16; TEMP 37.1
== END 2021-01-09 23:47 | disposition home or self-care (01) ==
PROVIDERS: Emergency Provider Emergency Medicine
DX: J06.9 Acute upper respiratory infection, unspecified (principal); F17.200 Nicotine dependence, unspecified, uncomplicated
CPT/HCPCS: 71045; 87426; 99282

== ENCOUNTER 2021-08-18 22:32 | Emergency (ER) | payer MEDICAID, SELFPAY ==
[2021-08-18 22:33] VITALS: BP 136/101; PULSE 106; RESP 20; TEMP 36; O2SAT 100; BMI 35.5
--- NOTE | 2021-08-18 23:17 | EDS_ITS ---
HPI History of Present Illness Chief Complaint: General Illness Informant: patient Onset/Context/Timing Onset: Today Context: Sudden Onset (When she woke up) Timing: Continuous Quality: Lightheaded and throbbing Location: Head Worsened by: Prolonged standing Relieved by: Nothing Narrative Narrative: Patient presents with dizziness and body aches that began today. Patient states she feels lightheaded and her head feels like it is throbbing. Patient states this is worse with prolonged standing. Patient states nothing seems to help with it. Patient states it began rather suddenly this morning when she woke up. Patient states it has been constant all day today. 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 Patient has not had her COVID-19 vaccine yet. Patient denies any fevers or chills. Patient admits to a sore throat and cough. Patient also admits to generalized body aches. PFSH PFSH Medical History no medical history no medical history Allergy/AdvReac Type Severity Reaction Status Date / Time No Known Allergies Allergy Verified 08/18/21 22:33 Surgical History no surgical history no surgical history Social History Smoking Status: Heavy Smoker (>10/day) substance use type: does not use ROS ROS ED Constitutional Constitutional ED: Denies chills or fever(s) Eyes Eyes: Denies blurry vision or change in vision ENT ENT ED: Reports sore throat; Denies rhinorrhea Cardiovascular Cardiovascular: Denies chest pain or palpitations Respiratory/Chest Respiratory/Chest: Reports cough; Denies dyspnea Gastrointestinal Gastrointestinal: Denies nausea or vomiting Genitourinary Genitourinary ED: Denies dysuria or hematuria Musculoskeletal Musculoskeletal: Reports myalgias Integumentary Denies abscess or rash Neurologic Neurologic: Reports headache(s); Denies paresthesias or weakness Allergic/Immunologic Allergic/Immunologic ED: Denies mouth swelling or urticaria EXAM Physical Exam Const Vital Signs: 08/18/21 22:33 08/18/21 22:44 Temperature 96.8 F L Temperature Source Temporal Pulse Rate 106 H Respiratory Rate 20 H Respiratory Effort Normal Non-Labored Respiratory Pattern Normal Blood Pressure 136/101 H Blood Pressure Mean 112 Pulse Ox 100 Oxygen Delivery Method Room Air Positive well nourished, well developed and obese General Appearance ED: well developed Nutritional Appearance: obese HEENT Reports moist mucous membranes Neck supple and no JVD Resp normal respiratory effort and clear to auscultation bilaterally Cardio regular rate, regular rhythm and no murmurs GI normal to inspection, nondistended, normoactive bowel sounds and non-tender Palpation: soft Extremity normal to inspection General Extremety ED: Negative for edema or tenderness General Extremity: Negative for edema Neuro oriented x3, CN's II-XII intact bilaterally and no sensory deficits noted Sensorium / Orientation: alert Motor Exam: strength 5/5 throughout Psych mental status grossly normal Skin no rashes or lesions noted MDM MDM MDM Narrative Medical decision making narrative: Patient was given IV fluids and Tylenol. CBC was within normal limits. Comprehensive metabolic profile was within normal limits. COVID-19 rapid antigen was obtained and was positive. Portable 1 view chest x-ray was obtained. On my interpretation, lung cornell are clear. There is normal cardiac silhouette. Bony thorax is normal. There is no acute process noted. Radiologist also interpreted the x-ray and agrees. Patient was advised of her findings. Patient was instructed to quarantine for the next 10 days. Patient was instructed to continue to monitor her pulse oximeter. Patient was instructed to take Tylenol or ibuprofen as needed for any aches or fevers. Patient was instructed to take Mucinex DM as needed for cough. Patient was instructed to follow-up with her primary care physician in 5 to 7 days. Patient understood and was agreeable with the plan. All questions were answered. Lab Data Attestation: I reviewed the patient's lab results. Labs: Laboratory Results - last 24 hr 08/18/21 08/18/21 23:45 23:45 WBC 4.4 RBC 4.52 Hgb 14.3 Hct 41.8 MCV 92.5 MCH 31.6 MCHC 34.2 RDW Std Deviation 42.3 RDW Coeff of Jules 12.4 Plt Count 247 MPV 9.0 Immature Gran % (Auto) 0.200 Neut % (Auto) 53.2 Lymph % (Auto) 25.0 Sawyer % (Auto) 18.5 H Eos % (Auto) 2.0 Baso % (Auto) 1.1 H Absolute Neuts (auto) 2.4 Absolute Lymphs (auto) 1.11 Nucleated RBC % 0 Sodium 140 Potassium 3.4 L Chloride 105 Carbon Dioxide 29.0 Anion Gap 6 BUN 14 Creatinine 0.87 Estim Creat Clear Calc 81.77 Est GFR (MDRD) Af Amer 101 Est GFR (MDRD) Non-Af 84 BUN/Creatinine Ratio 16.0 Glucose 84 Calcium 8.5 Total Bilirubin 0.20 AST 15 ALT 28 Alkaline Phosphatase 96 Total Protein 7.9 Albumin 3.9 Globulin 4.0 Albumin/Globulin Ratio 1.0 Radiography Chest X-Ray - ED: 1 View, Read by ED Physician, Read by Radiologist and Normal Discharge Plan Triage Chief Complaint: General Illness ED Provider: Amador Sprague Dx/Rx/DC Orders Clinical Impression: COVID-19 Instructions: Coronavirus Disease 2019 (COVID-19): Caring for Yourself or Others Stand Alone Forms: ED Work / School Excuse, Monoclonal Antibody Referral Primary Care Provider: Care Physician,No Primary Referrals: Yordy Pa MD [STAFF PHYSICIAN] - 5-7 Days Care Physician,No Primary [Primary Care Provider] - Disposition Disposition: Home, Self Care
[2021-08-18 23:28] VITALS: BP 125/86; PULSE 83; RESP 16; TEMP 37; O2SAT 98
--- NOTE | 2021-08-18 23:35 | RAD_ITS ---
INDICATION: Cough EXAMINATION/TECHNIQUE: X-RAY - XR Chest 1 View COMPARISON: January 09, 2021 chest x-ray FINDINGS: LINES/DEVICES: None. LUNGS: Symmetric normal lung volumes. No airspace opacity or abnormal interstitial pattern. No nodule or mass. No pleural effusion or pneumothorax. MEDIASTINUM AND CARDIOVASCULAR STRUCTURES: Normal size and contour of the cardiomediastinal silhouette. No evidence of pulmonary vascular congestion. BONES AND SOFT TISSUES: No abnormality within limits of the exam. RAD/Chest 1 View (Portable) IMPRESSION: 1. No radiographic evidence of acute cardiopulmonary disease. Electronically Signed: Zafar Pulido DO at 1:00 EST Tel , Service support ,
[2021-08-18] MEDS: Acetaminophen 500 MG Tablet 1000 MG PO (23:50)
[2021-08-18 23:53] LABS: Absolute Lymphocyte Count 1.11 X10^3/uL (0.83-4.51); Absolute Neutrophil Count 2.4 X10^3/uL (2.0-7.7); Basophil# 0.05 X10^3/uL; Basophil% 1.1 % (0-1); Eosinophil# 0.09 X10^3/uL; Hematocrit 41.8 % (37-47); Hemoglobin 14.3 g/dL (12.0-15.0); Lymphocyte # 1.11 X10^3/ul (0.83-4.51); Mean Corp Hgb Conc 34.2 g/dL (32-36); Mean Corpuscular Hgb 31.6 pg (27.0-32.0); Mean Corpuscular Volume 92.5 fL (81-99); Monocyte# 0.82 X10^3/uL; Monocyte% 18.5 % (0-10); NRBC Flagged by Analyzer 0 % (0-5); Neutrophil # 2.36 X10^3/uL (2.7-7.7); Neutrophil % 53.2 % (47-70); Platelet Count 247 K/mm3 (150-450); RBC Distribution Width CV 12.4 % (11.6-14.6); RBC Distribution Width SD 42.3 fl (35.1-43.9); Red Blood Count 4.52 M/mm3 (4.2-5.4); White Blood Count 4.4 K/mm3 (4.4-11.0)
[2021-08-19 00:13] LABS: AST(SGOT) 15 U/L (15-37); Alanine Aminotransfer ALT/SGPT 28 U/L (13-56); Albumin, Serum 3.9 g/dL (3.2-5.0); Alkaline Phosphatase 96 U/L (45-117); Anion Gap 6 (5-15); BUN 14 mg/dL (7-18); Calcium,Total 8.5 mg/dL (8.5-10.1); Chloride 105 mmol/L (98-107); Creatinine, Serum 0.87 mg/dL (0.55-1.02); EST Glomerular Filtration Rate 84 mL/min (>60); Est Glom Filt Rate - Afr Amer 101 mL/min (>60); Estimated Creatinine Clearance 81.77 ml/min; Glucose 84 mg/dL (74-106); Potassium 3.4 mmol/L (3.5-5.1); Protein, Total 7.9 g/dL (6.4-8.2); Sodium Level 140 mmol/L (136-145)
[2021-08-19 00:28] VITALS: BP 125/86; PULSE 79; RESP 16; TEMP 37; O2SAT 98
== END 2021-08-19 00:33 | disposition home or self-care (01) ==
PROVIDERS: Emergency Provider Emergency Medicine
DX: U07.1 COVID-19 (principal); F17.210 Nicotine dependence, cigarettes, uncomplicated
CPT/HCPCS: 71045; 80053; 85025; 87426; 99283; J7030; A4216

== ENCOUNTER 2023-07-03 10:56 | Day surgery (SDC) | payer MEDICAID, SELFPAY ==
--- NOTE | 2023-07-02 07:57 | PCM.HP.BLA ---
History and Physical Date of Admission: 07/03/23 Pre-Op History and Physical ? HPI: The patient is a 27 year old female presenting for pre-operative visit. She is scheduled for laparoscopic bilateral salpingectomy, for desires sterilization on 07/03/23. Procedure discussed along with risks, benefits and complications. Other alternatives discussed for management. Consent form signed? Yes. ? ? PAST MEDICAL HISTORY PAST MEDICAL HISTORY Diagnosis Date ? Chlamydia 2015 ? Depression ? ? History of suicidal ideation ? NEGATIVE MEDICAL HISTORY ? ? depression ? ? Preeclampsia ? ? ? PAST SURGICAL HISTORY PAST SURGICAL HISTORY Procedure Laterality Date ? D&C SUCTION ? 05/26/2018 ? Retained POC after miscarriage-Dr. Grande ? D+C ? 08/2017 ? ? ? CURRENT MEDICATIONS Current Outpatient Medications Medication Sig Dispense Refill ? fluticasone (FLONASE) 50 mcg/actuation nasal spray Use 2 Sprays in each nostril once daily. Rinse mouth after use. 1 Each 0 ? ibuprofen (MOTRIN ORAL) Take by mouth. ? ? ? No current facility-administered medications for this visit. ? ? ALLERGIES: Patient has no known allergies. ? PERSONAL HISTORY: SOCIAL HISTORY Social History ? Tobacco Use ? Smoking status: Every Day ? ? Packs/day: 1.00 ? ? Years: 6.00 ? ? Additional pack years: 0.00 ? ? Total pack years: 6.00 ? ? Types: Cigarettes ? Smokeless tobacco: Never Vaping Use ? Vaping Use: Never used Substance Use Topics ? Alcohol use: No ? Drug use: No ? FAMILY HISTORY: FAMILY HISTORY FAMILY HISTORY Problem Relation Age of Onset ? No Known Problems Mother ? ? No Known Problems Father ? ? No Known Problems Brother ? ? Asthma Sister ? ? No Known Problems Maternal Grandfather ? ? No Known Problems Paternal Grandmother ? ? Kidney Disease Maternal Grandmother ? ? Heart Paternal Grandfather ? ? No Known Problems Son ? ? No Known Problems Sister ? ? ? REVIEW OF SYMPTOMS: negative except as noted above PHYSICAL EXAMINATION: ? VITALS: Blood pressure 120/72, weight 198 lb (89.8 kg), last menstrual period 06/23/2023. ? GENERAL: The patient is well nourished, well hydrated in no acute distress. , The patient is oriented to time, place, and person. NECK: full range of motion LUNGS: Clear to auscultation bilaterally. no wheezes, rhonchi or rales HEART: Regular rate and rhythm, Normal heart sounds, and No murmurs or gallops ? IMPRESSION: 27yo desires permanent sterilization ? PLAN: Laparoscopic bilateral salpingectomy ? Pt has been counseled on risks/benefits and alternatives of surgery including but not limited to anesthesia, bleeding, infection, injury to pelvic structures including bowel, bladder, ureters and vessels. Pt wishes to proceed with surgery at this time. Risk of regret reviewed. ? Title 19 signed on 05/08/23 ? I have reviewed and updated past medical and surgical history, medications and allergies Martita Grande MD ?4:40 PM
--- NOTE | 2023-07-03 | FALS_PTH ---
PATHOLOGY RESULTS PATIENT: VIKKI WEBBER LOC: [facility] U#:[id number] AGE/SX: 27/F ROOM: RE07/03/[address]: Dr. Martita Grande MD : 1995 BED: DIS: 07/03/2023 SPEC #: [id number] RECD: 07/03/23 14:50 STATUS: MASSIMO DALILA #: [id number] DERRICK: 07/03/23 00:[address]: Martita Grande DEPT: SURGICAL PATHOLOGY RECD BY: Kofi Handy ENTERED: 07/04/23 08:59 SP TYPE: FALL TUBES OTHR DR: No Primary Care Phys Tissues: Fallopian tube Procedures: Surgery Specimen Level II HEADER OPERATION: Laparoscopic, Salpingectomy, lysis of adhesions PRE-OP DIAGNOSIS: Sterilization TISSUE SUBMITTED: Bilateral tubes MICROSCOPIC DIAGNOSIS Right and left fallopian tubes, bilateral salpingectomies: Two complete segments of fallopian tubes with no pathologic change. AM:desmond 07/08/2023 MICROSCOPIC DESCRIPTION Slides are reviewed. GROSS DESCRIPTION Received in fixative is one container labeled with the patient's name and designated bilateral fallopian tubes. The specimen consists of bilateral fallopian tubes including fimbrial ends each measuring 6.0 cm in length and 0.5 cm in diameter. The fallopian tubes are not identified as right or left. Sections reveal unremarkable cut surfaces. 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 / SJ:desmond 07/04/2023 TC:4 CPT: 77269 x2
[2023-07-03 11:29] VITALS: BP 124/71; PULSE 74; RESP 18; TEMP 36.2; O2SAT 100; BMI 34.6
[2023-07-03] MEDS: Lactated Ringers 1,000 ML 15 ML IV (11:40)
[2023-07-03 11:49] LABS: Hematocrit 44.2 % (37-47); Hemoglobin 14.9 g/dL (12.0-15.0); Mean Corp Hgb Conc 33.7 g/dL (32-36); Mean Corpuscular Hgb 31.9 pg (27.0-32.0); Mean Corpuscular Volume 94.6 fL (81-99); Mean Platelet Vol. 8.8 fl (6.2-12.0); Platelet Count 329 K/mm3 (150-450); RBC Distribution Width CV 12.6 % (11.6-14.6); RBC Distribution Width SD 43.6 fl (35.1-43.9); Red Blood Count 4.67 M/mm3 (4.2-5.4); White Blood Count 9.2 K/mm3 (4.4-11.0)
[2023-07-03 11:52] LABS: Internal QC Validated? YES +Cl - CLEAR BKGD; Pregnancy, Urine Negative Negative
--- NOTE | 2023-07-03 11:59 | DCINST_ITS ---
Discharge Instructions Diet Discharge Diet: No restrictions Activity May resume sexual activity in: 2 weeks Lifting Restrictions: 20-25 lbs Dressing / Incision Call your doctor if your incision/area has: Continuous Slow Oozing, Sudden Increased Bleeding, Increased Pain/ Swelling, Increased Redness, Foul Smelling Discharge and Swelling at the incision site Call your doctor if you observe: Fever of 101 or Higher, Inability to urinate, Inability to have a bowel movement, Using more than 1 pad per hour and Uncontrolled pain Additional Dressing/Incision Instructions:: You have skin glue over your incision sites, do not pick off. You may shower and let the soap and water run over the incision sites and dab dry. Follow Up Care Please Follow Up With: Martita Rodriguez MD When: 1-2 weeks post OP if you need an appointment please call [phone] Test Results: Test results from this visit will be discussed in further detail at your follow- up appointment, if applicable. Discharge Plan Admission Attending Provider: Martita Rodriguez Primary Care Provider: Care Physician,Shannon Primary Discharge Orders/Prescriptions Prescriptions: No Action NK Referrals / Follow Up: Care Physician,Shannon Primary [Primary Care Provider] -
[2023-07-03] MEDS: Bupivacaine 0.5% PF 10 ML VIAL (12:32)
--- NOTE | 2023-07-03 13:23 | PCM.OPRPT ---
Report of Operation Date of Procedure: 07/03/23 Pre-Operative Diagnosis: Desires sterilization Post-Operative Diagnosis: same, omental adhesions to anterior abdominal wall Surgery/Procedure Performed:: Laparoscopic bilateral salpingectomy, Lysis of adhesions Description of Surgical Findings:: omental adhesions stuck to anterior abdominal wall- interfering with visualization Surgeon: Martita Rodriguez Type of Anesthesia: General and Local Specimen's removed: bilateral fallopian tubes Estimated Blood Loss (mL): <10cc Fluids Replaced: 1000 Description of Procedure: After informed consent was obtained patient was taken to the operating room she was placed in supine position she was given anesthesia. She was then placed in the [facility] and she was prepped and draped in normal sterile fashion. Bladder was drained prior to the start of procedure. At this time attention was turned to the vaginal portion where weighted speculum placed at posterior fornix vagina single-tooth tenaculum was used to gently grasp the internal the cervix. uterus was gently sounded to approximately 7cm. Uterine manipulator was placed without difficulty. Legs then placed in parallel with the abdomen the tenaculum and the weighted speculum were removed. 2 towel clamps were placed at level of umbilicus. Marcaine was injected infraumbilical and a small incision was made. The 5 mm trocar was placed under direct visualization. CO2 gas was used to insufflate the intra-abdominal cavity. Upon inspection Large amount of omental adhesions noted in visual field. appreciated- the uterus tubes normal. Ovaries appeared to be slightly enlarged- left with simple appearing cyst. At this time then the LLQ and RLQ ports were placed First Marcaine was injected and small incision was made a knife and the 5 mm trocars were placed. At this time enseal used to coagulate and ligate adhesions in clear areas, once all adhesions were taken down then able to perform surgery. then tubes were traced back to the fimbriated ends. Enseal was used to coagulate and ligate along mesosalpinx bilaterally until tubes removed completely. Good hemostasis was appreciated. At this time procedure was deemed complete successful. The gas was desufflated on from the intra-abdominal cavity. The trochars were removed. Skin was closed using 4-0 Monocryl in a subcutaneous fashion. Dermabond glue was placed. Instrument lap and needle counts were correct ?2. The uterine manipulator was removed. Vaginal sweep was performed it was negative. There were no complications anticipated normal postoperative course for this patient. Grafts/Implants Used: none Procedure Start Time: 12:32 Procedure Stop Time: 12:22 Complications none Admit VTE Documentation VTE Present on Admission: Yes VTE Mechan Device Prophylaxis: SCD's VTE Pharm Prophylaxis ordered?: No Reason prophylaxis not ordered:: Procedure Not Indicated
[2023-07-03 13:35] VITALS: BP 124/71; BP 156/106; PULSE 65; RESP 20; TEMP 36.4; O2SAT 100
[2023-07-03 13:50] VITALS: BP 124/71; BP 133/67; PULSE 63; RESP 14; O2SAT 99
[2023-07-03 14:05] VITALS: BP 124/71; BP 148/94; PULSE 59; RESP 14; O2SAT 100
[2023-07-03 14:12] VITALS: BP 117/87; BP 124/71; PULSE 54; RESP 14; TEMP 36.1; O2SAT 100
[2023-07-03] MEDS: Oxycodone/Apap 5/325 Tablet PO (14:34)
[2023-07-03 15:02] VITALS: BP 109/77; BP 124/71; PULSE 56; RESP 16; TEMP 36.4; O2SAT 100
== END 2023-07-03 15:12 | disposition home or self-care (01) ==
LOC: SDC 11:03 → AC 11:04
PROVIDERS: Referring Provider Obstetrics & Gynecology; Visit Provider Obstetrics & Gynecology
PROC: (CPT 58661; principal; 2023-07-03 12:00)
DX: Z30.2 Encounter for sterilization (principal); K66.0 Peritoneal adhesions (postprocedural) (postinfection); F17.210 Nicotine dependence, cigarettes, uncomplicated; K21.9 Gastro-esophageal reflux disease without esophagitis
CPT/HCPCS: 58661; 00840; 49329; 81025; 85027; 88302; J7120; C1760; J2405

== ENCOUNTER 2023-07-05 14:30 | Emergency (ER) | payer MEDICAID, SELFPAY ==
[2023-07-05 14:33] VITALS: BP 124/86; PULSE 106; RESP 14; TEMP 36.4; O2SAT 98; BMI 34.5
--- NOTE | 2023-07-05 15:25 | EX.ED.DYSGE1 ---
HPI History of Present Illness Chief Complaint: General Illness Informant: patient Narrative Narrative: Patient is with abdominal pain. Patient had a laparoscopic salpingectomy 2 days ago. A little after surgery but more over the last days she has had pain and sensitivity in the lower midportion of her abdomen. She states the lateral ports do not hurt at all. She has not had fevers or chills. She has no nausea and vomiting but her appetite has been down a little bit. She is moving bowels. She states urination is normal. She has noticed a little bit of a darker colored area in the lower abdomen below the umbilicus. No wound drainage. She has no chronic medical conditions or chronic medications that she takes. She has been trying Motrin and Tylenol but it just does not seem to help. PFSH PFSH Medical History Gastric reflux Hypertension Shortness of breath on exertion Smoker Wears glasses Home Medications cephalexin 500 mg capsule 500 mg PO Q6 #40 CAPSULES 07/05/23 [Rx Last Taken Unknown] hydrocodone-acetaminophen 5-325mg 5mg-325mg 1 tab PO Q6H PRN PRN Pain 3 days #10 TABLETS 07/05/23 [Rx Last Taken Unknown] Allergy/AdvReac Type Severity Reaction Status Date / Time No Known Allergies Allergy Verified 07/05/23 14:32 Surgical History Hx of dilation and curettage Social History Smoking Status: Heavy Smoker (>10/day) substance use type: does not use ROS ROS ED ROS Narrative A complete review of systems was performed and is negative except as documented in the history of present illness. Some specific details below. Constitutional: No recent fevers or chills. EYE: No visual complaints change in eye color. ENT: No difficulty swallowing. No GERD. CV: No chest pain or palpitations. Respiratory: No dyspnea. No hemoptysis. No difficulty taking breaths. GI: Please see history of present illness. : No frequency dysuria or hematuria. No change in color or odor. Musculoskeletal: No recent trauma. No pains. Skin: No rash. Nondiaphoretic. Neuro: No weakness or numbness. Endocrine: No polyuria or polydipsia. EXAM Physical Exam Narrative Exam Narrative: CONSTITUTIONAL: Patient is nontoxic in appearance. The patient looks comfortable. HEENT: No notable trauma. Mucous membranes mildly dry. EYES: No conjunctival injection. No icterus. CARDIOVASCULAR: Regular rate. Regular rhythm. No notable murmur. No JVD. RESPIRATORY: No respiratory distress. Breathing is unlabored. No wheezes. No rhonchi. No rales. No pain with a deep breath. GASTROINTESTINAL: Not distended. Bowel sounds are normal. Patient's port sites are appropriately covered with Dermabond. There is no erythema. There is a little bit of bruising in the lower midline below the umbilicus. This was outlined with a marker. But it does not seem to be infected and it is only 2 days after surgery. When I press in that area it is tender. Just setting a sheet on that lower midportion is very sensitive for the patient. But I can press in the left upper and lower quadrant and epigastric rather firmly and there is no intra-abdominal tenderness. She seems to have tenderness of the anterior skin only. Patient herself states she does not think anything is wrong she just hurts in that area. GENITOURINARY: No tenderness over the bladder. No CVA tenderness. MUSCULOSKELETAL: Atraumatic. No peripheral edema. No cord. No tenderness along the deep venous system. No asymmetry. NEUROLOGICAL: Patient is alert and appropriate. No focal deficit noted. SKIN: No noted rashes. No diaphoresis. Slight bruising below the wound as above. PSYCHIATRIC: Patient is calm. Mood is appropriate. Const Vital Signs: 07/05/23 14:33 07/05/23 14:48 Temperature 97.6 F L Temperature Source Temporal Pulse Rate 106 H Respiratory Rate 14 Respiratory Effort Normal Non-Labored Blood Pressure 124/86 H Blood Pressure Mean 98 Pulse Ox 98 Oxygen Delivery Method Room Air MDM MDM MDM Narrative Medical decision making narrative: I talked with patient about options. I stated we can certainly do blood work and CT scan. But the chance of intra-abdominal infection is quite low considering she is only 48 hours past surgery. She has no fever. And her abdomen is actually not tender. The abdomen anterior wall in the lower midportion is very hypersensitive but the rest of the abdomen is quite benign. Her bowel sounds are normal. She would like just something for pain and I will give her something for nausea to prevent this. We will give her some IV fluids and we will reassess her. We rechecked the patient. She feels much better. I can again press all of her had her abdomen is very benign except she is sensitive in that middle area. It is not getting more red or more bruised. I discussed this with her. I do not think this represents an infection considering or 48 hours postop. If the redness spreads outside of the marked area or she develops fevers chills or other symptoms it may be reasonable to start antibiotics for a early wound infection. But I do not think she needs to start them now. I did call and discussed the case by phone with Esme Jamesfernando to let them know that the patient did come in for evaluation. But I do not think this patient needs blood work or CT scan at this time. Her overall exam is benign, she has no fevers, she is briefly postoperative. Discharge Plan Triage Chief Complaint: General Illness ED Provider: Jonathan Cristina Dx/Rx/DC Orders Clinical Impression: Status post bilateral salpingectomy, Postoperative abdominal pain Instructions: Managing Post-Op Pain at Home Prescriptions: New cephalexin [cephalexin] 500 mg capsule 500 mg PO Q6 Qty: 40 0RF hydrocodone-acetaminophen [hydrocodone-acetaminophen] 5-325 mg tablet 1 tab PO Q6H PRN PRN (Reason: Pain) 3 Days Qty: 10 0RF Stand Alone Forms: ED Work / School Excuse Primary Care Provider: Care Physician,No Primary Referrals: Care Physician,No Primary [Primary Care Provider] - Disposition Disposition: Home, Self Care
[2023-07-05] MEDS: Morphine 4 MG/ML Syringe IV (15:33)
[2023-07-05] MEDS: Ondansetron 4 MG/2 ML Vial IV (15:33)
[2023-07-05] MEDS: 0.9% Normal Saline (1000mL) 1,000 ML 1000 ML IV (15:34)
[2023-07-05 17:36] VITALS: BP 129/87; PULSE 86; RESP 16; O2SAT 99
== END 2023-07-05 17:38 | disposition home or self-care (01) ==
PROVIDERS: Emergency Provider Emergency Medicine; Visit Provider Emergency Medicine
DX: G89.18 Other acute postprocedural pain (principal); I10 Essential (primary) hypertension; F17.200 Nicotine dependence, unspecified, uncomplicated; Z90.722 Acquired absence of ovaries, bilateral; R10.9 Unspecified abdominal pain
CPT/HCPCS: 96361; 96374; 96375; 99282; J7030; J2405

== ENCOUNTER 2024-04-08 15:44 | Emergency (ER) | payer SELFPAY ==
[2024-04-08 15:44] VITALS: BP 129/97; PULSE 67; RESP 18; TEMP 36.3; O2SAT 99; BMI 32.7
[2024-04-08 15:46] VITALS: BP 129/97; PULSE 67; RESP 18; TEMP 36.3; O2SAT 99
--- NOTE | 2024-04-08 16:38 | EDS_ITS ---
HPI History of Present Illness Chief Complaint: Dental Detail of Chief Complaint: Right upper jaw dental pain for 3 days. No trauma. Informant: patient Onset/Context/Timing Onset: Days Timing: Continuous Current Severity: Moderate Maximum Severity: Moderate Relieved by: NSAIDs Narrative Narrative: Healthy 20-year-old female right upper jaw dental pain for 3 days. No trauma. Prior similar symptoms: Yes Recent Illness/Hospitalization: No PFSH PFSH Medical History Wears glasses Gastric reflux Shortness of breath on exertion Smoker Hypertension Home Medications ?Medication ?Instructions ?Recorded ?Last Taken ?Type cephalexin 500 mg capsule 500 mg PO Q6 #40 CAPSULES 07/05/23 Unknown Rx hydrocodone-acetaminophen 5-325mg 1 tab PO Q6H PRN PRN Pain 3 days 07/05/23 Unknown Rx 5mg-325mg #10 TABLETS penicillin V potassium 500 mg 500 mg PO 4X/DAY #40 tabs 04/08/24 Unknown Rx tablet Allergy/AdvReac Type Severity Reaction Status Date / Time No Known Allergies Allergy Verified 04/08/24 15:44 Surgical History Hx of dilation and curettage Social History Smoking Status: Heavy Smoker (>10/day) substance use type: does not use ROS ROS ED ROS Narrative No recent illness. Constitutional Constitutional ED: Denies fever(s) Eyes Eyes: Denies blurry vision ENT ENT ED: Denies ear pain Cardiovascular Cardiovascular: Denies chest pain Respiratory/Chest Respiratory/Chest: Denies cough Gastrointestinal Gastrointestinal: Denies abdominal pain Genitourinary Genitourinary ED: Denies dysuria Musculoskeletal Musculoskeletal: Denies arthralgias Integumentary Denies abscess Neurologic Neurologic: Denies headache(s) Psychiatric Psychiatric: Denies anxiety Endocrine Endocrinology: Denies cold intolerance Hematologic/Lymphatic Hematologic/Lymphatic: Denies easy bleeding or easy bruising Allergic/Immunologic Allergic/Immunologic ED: Denies mouth swelling, tongue swelling or urticaria EXAM Physical Exam Narrative Exam Narrative: Well-appearing 28-year-old female. Vital signs stable afebrile. H EENT exam right upper jaw last molar is eroded decayed to the gumline. Minimal swelling. No drainable abscess. No trismus. Other teeth are in good condition. Tenderness at the site. No trouble swallowing or breathing. Neck nontender no lymphadenopathy. Lungs clear to auscultation. Heart regular rhythm no murmur. Abdomen soft nontender. Otherwise exam unremarkable. Const Vital Signs: 04/08/24 15:44 04/08/24 15:46 Temperature 97.4 F L 97.4 F L Temperature Source Temporal Temporal Pulse Rate 67 67 Respiratory Rate 18 18 Blood Pressure 129/97 H 129/97 H Blood Pressure Mean 107 107 Pulse Ox 99 99 Oxygen Delivery Method Room Air Room Air Positive well nourished and well developed; Negative for obese, cachectic, contractures or unkempt General Appearance ED: well developed and NAD; Negative for unkempt, cachectic or contractures Nutritional Appearance: Negative for cachectic or obese HEENT HEENT Narrative: Right upper jaw right last molar decayed and eroded in the gumline. Minimal swelling. No abscess Negative for trauma or tenderness Mouth ED: Yes oral and palatal mucosa normal Mouth: oral and palatal mucosa normal Teeth and Gingiva: abnormal tooth and associated gingiva Eyes PERRL and EOMs intact bilaterally General Eye ED: Negative for pale conjunctiva or scleral icterus Neck no lymphadenopathy, supple and no JVD General: normal visual inspection; Negative for anterior neck swelling, tenderness or submandibular swelling Lymph Lymphatic: no lymphadenopathy noted Chest Wall inspection of chest normal and palpation of chest normal Resp normal respiratory effort, no retractions and clear to auscultation bilaterally Cardio regular rate, regular rhythm, S1 normal heart sound, S2 normal heart sound and no murmurs GI normal to inspection, nondistended, normoactive bowel sounds, non-tender, non- distended and no masses Back/Spine no CVA tenderness General Back: Negative for CVA tenderness Cervical Spine: Negative for other Thoracic Spine / Upper Back: Negative for thoracic spinal tenderness Extremity normal to inspection and no joint enlargement Neuro oriented x3, CN's II-XII intact bilaterally, moves all extremities and no focal motor deficits Sensorium / Orientation: alert, oriented to person, oriented to place and oriented to time Motor Exam: strength 5/5 throughout Psych mental status grossly normal Appearance: Negative for unkempt Mood & Affect: Negative for anxious or tearful Skin no rashes or lesions noted and no wounds MDM MDM MDM Narrative Medical decision making narrative: Patient with right upper jaw last molar eroded to the gumline. Dental cavity, decay and possible abscess. Nothing to drain at this time. Patient was given a local injection of lidocaine for dental block. Motrin and Tylenol at home for pain. Prescription for Pen-Vee K 500 4 times daily for 10 days. She is instructed to call her insurance and get set up with a dental appointment. Procedures Other Procedures Procedure(s): Right upper jaw last molar dental block with lidocaine with epinephrine. Patient tolerated well. Had quick relief. Discharge Plan Triage Chief Complaint: Dental ED Provider: Rylan Gallegos Dx/Rx/DC Orders Clinical Impression: Dental cavity, Abscess, dental, Pain, dental Instructions: Dental Abscess, ED Dental Pain, ED Dental Cavity Prescriptions: New penicillin V potassium 500 mg tablet 500 mg PO 4X/DAY Qty: 40 0RF No Action cephalexin [cephalexin] 500 mg capsule 500 mg PO Q6 Qty: 40 0RF hydrocodone-acetaminophen [hydrocodone-acetaminophen] 5-325 mg tablet 1 tab PO Q6H PRN PRN (Reason: Pain) 3 Days Qty: 10 0RF Primary Care Provider: Care Physician,No Primary Referrals: Care Physician,No Primary [Primary Care Provider] - Activity Restrictions/Additional Instructions: Ice to your jaw. Alternate Tylenol and Motrin for pain. The antibiotic penicillin 4 times a day till gone. Call your insurance to get a list of what dentist they are contracted with and call around to see you can get in with the soon as possible. Print Language: Lithuanian Disposition Disposition: Home, Self Care
[2024-04-08 16:52] VITALS: BP 125/75; PULSE 65; RESP 15; TEMP 36.4; O2SAT 95
== END 2024-04-08 16:53 | disposition home or self-care (01) ==
PROVIDERS: Emergency Provider Emergency Medicine; Visit Provider Emergency Medicine
DX: K04.7 Periapical abscess without sinus (principal); R68.84 Jaw pain; F17.200 Nicotine dependence, unspecified, uncomplicated; I10 Essential (primary) hypertension; K02.9 Dental caries, unspecified; K08.89 Other specified disorders of teeth and supporting structures
CPT/HCPCS: 64999; 99282

== ENCOUNTER 2024-11-04 23:16 | Emergency (ER) | payer SELFPAY ==
[2024-11-04 23:17] VITALS: BP 115/60; PULSE 86; RESP 16; TEMP 36.4; O2SAT 97; BMI 35.4
[2024-11-04] MEDS: Ketorolac 30 MG/ML Syringe IV (23:55)
[2024-11-04] MEDS: 0.9% Normal Saline (1000mL) 1,000 ML 999 ML IV (23:55)
[2024-11-05 00:08] LABS: Absolute Lymphocyte Count 5.25 X10^3/uL (0.83-4.51); Absolute Neutrophil Count 9.1 X10^3/uL (2.0-7.7); Basophil# 0.11 X10^3/uL; Basophil% 0.7 % (0-1); Eosinophil# 0.41 X10^3/uL; Eosinophils% 2.6 % (0-5); Hematocrit 37.7 % (37-47); Hemoglobin 13.5 g/dL (12.0-15.0); Lymphocyte # 5.25 X10^3/ul (0.83-4.51); Mean Corp Hgb Conc 35.8 g/dL (32-36); Mean Corpuscular Volume 92.2 fL (81-99); Mean Platelet Vol. 9.7 fl (6.2-12.0); Monocyte% 6.3 % (0-10); NRBC Flagged by Analyzer 0 % (0-5); Neutrophil % 57.1 % (47-70); POSITIVE DIFFERENTIAL YES; Platelet Count 353 K/mm3 (150-450); RBC Distribution Width CV 12.4 % (11.6-14.6); RBC Distribution Width SD 41.9 fl (35.1-43.9); Red Blood Count 4.09 M/mm3 (4.2-5.4); White Blood Count 15.9 K/mm3 (4.4-11.0)
[2024-11-05 00:09] LABS: Differential Indicated SCAN CRITERIA MET
[2024-11-05 00:30] LABS: Anion Gap 15 (5-15); BUN 15 mg/dL (4-19); BUN/Creat Ratio 14.6 RATIO (10-20); Calcium,Total 8.8 mg/dL (7.6-11.0); Carbon Dioxide 21.3 mmol/L (21.0-32.0); Chloride 102 mmol/L (98-108); Creatinine, Serum 1.03 mg/dL (0.70-1.20); EST Glomerular Filtration Rate 76 (>60); Estimated Creatinine Clearance 86.88 ml/min (50-250); Glucose 121 mg/dL (70-99); Potassium 3.4 mmol/L (3.3-5.1); Sodium Level 138 mmol/L (133-145)
[2024-11-05 01:08] LABS: Differential Comment SCANNED
[2024-11-05 01:12] LABS: Color, Urine Yellow (Yellow); Glucose, Dipstick Normal (Normal); Ketone-Dipstick Negative (Negative); Leukocyte Esterase-Dipstick Negative /ul (Negative); Nitrite-Dipstick Negative (Negative); Occult Blood-Urine Negative /ul (Negative); Protein-Dipstick 30 mg/dl (Negative); Urine Bilirubin Dipstick Negative (Negative); Urine Clarity Clear (Clear); Urine Urobilinogen Normal (Normal); Urine pH 6.5 (5.0 - 8.0)
[2024-11-05 01:17] VITALS: BP 98/56; PULSE 84; RESP 18; O2SAT 98
[2024-11-05 01:21] LABS: Bacteria 2+ /hpf (None Seen); Hyaline Cast 0-5 SEEN /lpf (0-5); Internal QC Validated? YES +Cl - CLEAR BKGD; Mucous, Urine 2+ /hpf (<or=2+); Pregnancy, Urine Negative Negative; Red Blood Cells-Urine 0 SEEN /hpf (0-5); Squamous Epithelial Cells - UA 5-10 SEEN /hpf (5-10); White Blood Cells 0-5 SEEN /hpf (0-5)
--- NOTE | 2024-11-05 01:35 | EDS_ITS ---
HPI History of Present Illness Chief Complaint: Abd Pain Informant: patient Narrative Narrative: Patient is a 28-year-old female with no significant reported past medical history. She states that she was at home this evening relaxing when she developed sudden onset of right sided abdominal discomfort. She states it was sharp in nature and caused her to have bouts of nausea without vomiting. She reports that there has been no recent trauma or excessive activity. She states that the pain was not improving with changes in position. She reports the pain was making her nauseous. She denies any known sick contact. She states that she had concern this could be her appendix based on pain being on the right side and therefore comes in for evaluation [facility] Medical History Wears glasses Gastric reflux Shortness of breath on exertion Smoker Hypertension Home Medications ?Medication ?Instructions ?Recorded ?Last Taken ?Type cephalexin 500 mg capsule 500 mg PO Q6 #40 CAPSULES Unknown Rx hydrocodone-acetaminophen 5-325mg 1 tab PO Q6H PRN PRN Pain 3 days 07/05/23 Unknown Rx 5mg-325mg #10 TABLETS penicillin V potassium 500 mg 500 mg PO 4X/DAY #40 tab s 04/08/24 Unknown Rx tablet Allergy/AdvReac Type Severity Reaction Status Date / Time No Known Allergies Allergy Verified 04/08/24 15:44 Surgical History Hx of dilation and curettage Social History Smoking Status: Heavy Smoker (>10/day) substance use type: does not use ROS ROS ED Constitutional Constitutional ED: Denies chills or fever(s) Eyes Eyes: Denies blurry vision or change in vision ENT ENT ED: Denies sore throat Cardiovascular Cardiovascular: Denies chest pain Respiratory/Chest Respiratory/Chest: Denies cough or dyspnea Gastrointestinal Gastrointestinal: Reports abdominal pain and nausea; Denies diarrhea or vomiting Genitourinary Genitourinary ED: Denies dysuria or hematuria Musculoskeletal Musculoskeletal: Denies back pain Integumentary Denies rash Neurologic Neurologic: Denies headache(s) Psychiatric Psychiatric: Reports anxiety Hematologic/Lymphatic Hematologic/Lymphatic: Denies easy bleeding or easy bruising EXAM Physical Exam Const Vital Signs: 11/04/24 23:17 11/05/24 01:17 11/05/24 01:51 Temperature 97.5 F L 97.8 F Temperature Source Oral Pulse Rate 86 84 81 Respiratory Rate 16 18 16 Blood Pressure 115/60 98/56 L 101/64 Blood Pressure Mean 78 70 76 Pulse Ox 97 98 99 Oxygen Delivery Method Room Air Positive well nourished, well developed and obese General Appearance ED: well developed; Negative for pallor Nutritional Appearance: obese HEENT Reports moist mucous membranes HEENT Narrative: No signs of infection noted in the posterior pharynx Eyes PERRL and EOMs intact bilaterally General Eye ED: Negative for scleral icterus Neck supple Neck Narrative: No nuchal rigidity or meningeal signs Resp normal respiratory effort and clear to auscultation bilaterally Cardio regular rate and regular rhythm Rate: other Other Details: Heart is regular rate and rhythm without murmurs rubs or gallop Radial and carotid pulses are equal and symmetric GI non-distended and no masses GI Narrative: Abdomen is soft and nondistended with hypoactive bowel sounds. There is pain with palpation in the right lower quadrant but no voluntary guarding or rigidity No pulsatile mass or fluid wave Negative Estevez sign. Negative heel strike psoas and obturator sign Auscultation: hypoactive bowel sounds Palpation: soft Back/Spine Back/Spine Narrative: Faint right-sided CVA pain noted Extremity normal to inspection Neuro oriented x3, CN's II-XII intact bilaterally and no sensory deficits noted Sensorium / Orientation: alert Motor Exam: strength 5/5 throughout Psych mental status grossly normal Skin no rashes or lesions noted and no wounds General Skin Exam: Negative for jaundice or pallor MDM MDM MDM Narrative Medical decision making narrative: Patient presented to the ER with stable vitals. She reported sudden onset of right sided abdominal pain. Differential diagnosis is for kidney stone versus incarcerated hernia versus UTI versus complication versus acute appendicitis versus viral infection such as norovirus or rotavirus. With pain coming on suddenly and it being reportedly sharp in nature and localized to the right side I did feel this was most likely kidney stone. Secondary to his basic labs were obtained with noncontrast CT. patient's white count is elevated at 15.9 but I feel this is most likely stress response as she is afebrile. Patient's urine does show +2 bacteria but there is contamination with 5-10 skin cells and otherwise no white blood cells or nitrites and therefore I do not feel there is need for antibiotics or culture as this is unlikely infection. The patient CT scan revealed no obvious reason for her pain as it noted a normal appendix and no kidney stone. I did not visualize the ovaries well and therefore we discussed obtaining a CT scan with IV contrast for better visualization as patient could have potential ovarian cyst. However she reports that she has had resolution of her pain and does not want to be in the ER any longer. She does agree to an outpatient pelvic ultrasound for potential evaluation of ovarian pathology but at this time states that as her CT scan does not reveal acute appendicitis and her pain has resolved she would prefer to be discharged home. History & Record Review Discussion w/independent historian: Patient Lab Data Attestation: I reviewed the patient's lab results. Labs: Laboratory Results - last 24 hr 11/04/24 11/05/24 23:20 01:01 WBC 15.9 H RBC 4.09 L Hgb 13.5 Hct 37.7 MCV 92.2 MCH 33.0 H MCHC 35.8 RDW Std Deviation 41.9 RDW Coeff of Jules 12.4 Plt Count 353 MPV 9.7 Immature Gran % (Auto) 0.300 Neut % (Auto) 57.1 Lymph % (Auto) 33.0 [place] % (Auto) 6.3 Eos % (Auto) 2.6 Baso % (Auto) 0.7 Absolute Neuts (auto) 9.1 H Absolute Lymphs (auto) 5.25 H Nucleated RBC % 0 Differential Comment SCANNED Sodium 138 Potassium 3.4 Chloride 102 Carbon Dioxide 21.3 Anion Gap 15 BUN 15 Creatinine 1.03 Estim Creat Clear Calc 86.88 Est GFR (MDRD) Non-Af 76 BUN/Creatinine Ratio 14.6 Glucose 121 H Calcium 8.8 Urine Color Yellow Urine Clarity Clear Urine pH 6.5 Ur Specific [place] 1.020 Urine Protein 30 H Urine Glucose (UA) Normal Urine Ketones Negative Urine Occult Blood Negative Urine Nitrite Negative Urine Bilirubin Negative Urine Urobilinogen Normal Ur Leukocyte Esterase Negative Urine RBC 0 SEEN Urine WBC 0-5 SEEN Ur Squamous Epith Cells 5-10 SEEN Urine Bacteria 2+ Hyaline Casts 0-5 SEEN Urine Mucus 2+ Urine Test Negative Radiography Diagnostic Testing: Clinical Impression(s) from Imaging Studies Abdomen/Pelvis CT 11/05/24 23:47 IMPRESSION: No evidence of acute intra-abdominal process on noncontrast imaging as above. One or more dose reduction techniques were used (e.g., Automated exposure control, adjustment of the mA and/or kV according to patient size, use of iterative reconstruction technique). Reading Location: [facility] Discharge Plan Triage Chief Complaint: Abd Pain ED Provider: Semaj Menjivar Dx/Rx/DC Orders Clinical Impression: Nonspecific abdominal pain Instructions: Abdominal Pain Prescriptions: No Action cephalexin [cephalexin] 500 mg capsule 500 mg PO Q6 Qty: 40 0RF hydrocodone-acetaminophen [hydrocodone-acetaminophen] 5-325 mg tablet 1 tab PO Q6H PRN PRN (Reason: Pain) 3 Days Qty: 10 0RF penicillin V potassium 500 mg tablet 500 mg PO 4X/DAY Qty: 40 0RF Stand Alone Forms: ED Work / School Excuse Other Ambulatory Orders: Transvaginal Non- (Routine) Facility: [facility] - Location: [facility] Ordered By: Dr. Semaj Menjivar Primary Care Provider: Care Physician,No Primary Referrals: Geovanny Valentin MD [Med Staff - Active Staff] - Care Physician,No Primary [Primary Care Provider] - Activity Restrictions/Additional Instructions: Your CT scan did not show signs of kidney stone or acute appendicitis. Please obtain your outpatient ultrasound to ensure your pain was not related to ovarian/reproductive pathology. If you develop a fever or have increasing pain or any further concerns please return to the ER for repeat evaluation Print Language: Slovenian Disposition Disposition: Home, Self Care Discharge Date/Time: 11/05/24 01:51
[2024-11-05 01:51] VITALS: BP 101/64; PULSE 81; RESP 16; TEMP 36.6; O2SAT 99
--- NOTE | 2024-11-05 23:47 | CT_ITS ---
PROCEDURE: ABDOMEN/PELVIS WITHOUT CONT REASON FOR EXAM: RIGHT FLANK PAIN TECHNIQUE: Abdomen and pelvis CT without intravenous contrast. Coronal and sagittal reformatted images COMPARISON: None. FINDINGS: Lung bases: Clear Liver: Unremarkable. Gallbladder: Unremarkable. Contracted Spleen: Unremarkable. Pancreas: Unremarkable. Adrenals: Unremarkable. Kidneys: Unremarkable. No renal stones, hydronephrosis or perinephric stranding. No ureteral or bladder stone identified. Bladder: Unremarkable. Reproductive Organs: Unremarkable. Ovaries are not well evaluated on noncontrast imaging. Bowel: Unremarkable. No bowel dilation or free air. Appendix: Normal caliber retrocecal appendix without secondary signs. Lymph nodes: No suspicious lymph node enlargement. Vasculature: Major vascular structures are unremarkable. Peritoneum / Retroperitoneum: Possible trace pelvic free fluid. No free air. Bones: Unremarkable. CT/Abdomen/Pelvis without Cont IMPRESSION: No evidence of acute intra-abdominal process on noncontrast imaging as above. One or more dose reduction techniques were used (e.g., Automated exposure contr ol, adjustment of the mA and/or kV according to patient size, use of iterative reconstruction technique). Reading Location: [id number]
== END 2024-11-05 01:51 | disposition home or self-care (01) ==
PROVIDERS: Emergency Provider Emergency Medicine; Visit Provider Emergency Medicine
DX: R10.9 Unspecified abdominal pain (principal); I10 Essential (primary) hypertension
CPT/HCPCS: 74176; 80048; 81001; 81025; 85025; 96361; 96374; 99285